=== PATIENT | female | born 1945 | race Caucasian/White ===

== ENCOUNTER → 2019-05-16 13:15 | Outpatient (CLI) | payer MEDICARE, SELFPAY ==
--- NOTE | ~2019-05-16 | US_ITS ---
EXAMINATION: US renal BI DATE: 05/16/2019 13:59 INDICATION: Abnormal renal function. TECHNIQUE: Multiple ultrasound grayscale images of the kidneys were obtained. COMPARISON: None. FINDINGS: The right kidney measures 8.0 x 4.6 x 4.3 cm. Exclusive of a 7.0 x 5.5 x 7.4 cm simple appearing anec hoic exophytic cyst arising from the lower pole. No hydronephrosis in the right kidney. The left kidn ey measures 10.8 x 4.8 x 4.5 cm. There is mild left hydronephrosis. The kidneys demonstrate normal ec hogenicity. No stones identified. Bilateral ureteral jets are visualized in the normal-appearing blad jose a.. IMPRESSION: 1. Mild left hydronephrosis but with bilateral ureteral jets in the bladder and no evident shadowing nephrolithiasis. 2. 7.4 cm simple appearing right renal cyst. Reviewed, dictated and finalized at location A. ERN FITTER IMPRESSION: 1. Mild left hydronephrosis but with bilateral ureteral jets in the bladder an d no evident shadowing nephrolithiasis. 2. 7.4 cm simple appearing right renal cyst.
== END ==
PROVIDERS: PCP Family Medicine; Visit Provider Internal Medicine Nephrology
DX: R94.4 Abnormal results of kidney function studies (principal); N28.1 Cyst of kidney, acquired
CPT/HCPCS: 76775

== ENCOUNTER 2019-09-15 09:42 | Outpatient (CLI) | payer MEDICARE, SELFPAY ==
--- NOTE | ~2019-09-15 | MR_ITS ---
EXAMINATION: MR knee LT wo con DATE: 09/15/2019 10:27 INDICATION: Generalized left knee pain TECHNIQUE: Magnetic resonance imaging (MRI) of the left knee was performed without intravenous contra st. Sequences included coronal PD-weighted FSE, coronal PD-weighted FS FSE, sagittal T2-weighted FSE , sagittal PD-weighted FS FSE and axial PD weighted fat saturated FSE. COMPARISON: None. FINDINGS: Medial compartment: Complex tear of the body and posterior horn of the medial meniscus. Partial-thickness cartilage loss along the anterior to central weightbearing medial femoral condyle and throughout the medial tibial p lateau. In places likely reaches full/near full-thickness with scattered subarticular edema. There ar e preserved cartilage thickness at the posterior weightbearing medial femoral condyle but with additi onal deep chondral fissuring. Moderate sized marginal osteophytes are present. Lateral compartment: Lateral meniscus is normal. Deep chondral fissuring at the posterior weightbearing lateral femoral co ndyle. Small marginal osteophytes are present. Patellofemoral compartment: Deep chondral ulceration with a few foci of subarticular edema at the medial patellar facet and apica l ridge. Additional deep chondral ulceration with underlying irregular contour to the articular onesimo x and mild subarticular edema at the lateral trochlea, trochlear groove and lateral side of the media l trochlea. Ligaments and tendons: Anterior and posterior cruciate ligaments are normal. The medial collateral ligament and fibular eliceo ateral ligament complex are normal. The extensor mechanism is normal. The visualized medial and later al hamstring tendons as well as the iliotibial band are normal. Fluid: Small knee joint effusion with small amount of fluid and mild synovitis at the suprapatellar pouch. T here is a 4 mm loose osteochondral body at the suprapatellar pouch. Multilobulated ganglion cyst avel g the posterior capsule overlying the posterior weightbearing medial femoral condyle. Additional mult ilobulated ganglion cyst tracking caudally along the medial and lateral margins of the popliteus musc le and tendon. Small amount of fluid and mild synovitis at the prepatellar bursa consistent with burs itis. Osseous/other: Bone alignment is normal. No fracture or pathologic marrow replacing process. IMPRESSION: 1. Complex medial meniscal tear. 2. Tricompartmental osteoarthritis, severe in the medial compartment and moderate severity in the pat ellofemoral compartment, both with extensive high-grade chondromalacia and mild in the lateral compar tment with region of moderate to high-grade chondromalacia in the posterior weightbearing lateral fem oral condyle. 3. Likely reactive small left knee joint effusion. 4. Prepatellar bursitis. Reviewed, dictated and finalized at location A. IMPRESSION: 1. Complex medial meniscal tear. 2. Tricompartmental osteoarthritis, severe in the medial compartment and modera te severity in the patellofemoral compartment, both with extensive high-grade c hondromalacia and mild in the lateral compartment with region of moderate to hi gh-grade chondromalacia in the posterior weightbearing lateral femoral condyle. 3. Likely reactive small left knee joint effusion. 4. Prepatellar bursitis.
== END 2019-09-15 09:43 | disposition home or self-care (01) ==
PROVIDERS: PCP Family Medicine; Visit Provider Orthopaedic Surgery
DX: M25.562 Pain in left knee (principal); S83.232A Complex tear of medial meniscus, current injury, left knee, initial encounter; M17.12 Unilateral primary osteoarthritis, left knee; M94.262 Chondromalacia, left knee; M25.462 Effusion, left knee; M71.562 Other bursitis, not elsewhere classified, left knee
CPT/HCPCS: 73721

== ENCOUNTER 2019-10-13 09:54 | Outpatient (CLI) | payer MEDICARE, SELFPAY ==
[2019-10-13 11:14] LABS: Basophils Percent Auto 0.5 % (0.2-1.2); Eosinophils Absolute Auto 0.2 K/mm3 (0-0.3); Eosinophils Percent Auto 3.8 % (0-4.4); Hematocrit 44.4 % (37.0-47.0); Hemoglobin 14.2 g/dL (12.0-15.0); Immature Granulocyte Absolute 0.01 K/mm3 (0.00-0.031); Immature Granulocyte Percent A 0.2 % (0-0.5); Lymphocytes Absolute Auto 1.63 K/mm3 (0.9-3.2); Lymphocytes Percent Auto 28.2 % (18.3-44.2); Mean Corpuscular Hemoglobin 30.4 pg (26-34); Mean Corpuscular Volume 95.1 fl (80-100); Mean Platelet Volume 9.9 fl (7.4-10.4); Monocytes Absolute Auto 0.7 K/mm3 (0.1-0.6); Neutrophils Absolute Auto 3.2 K/mm3 (1.3-6.7); Neutrophils Percent Auto 55.3 % (45.5-73.1); Platelet Count Result 173 k/mm3 (150-375); Red Blood Count 4.67 M/mm3 (4.2-5.4); Red Cell Distribution Width 13.2 % (11.5-14.5); White Blood Count 5.8 K/mm3 (4.5-10.0)
== END 2019-10-13 09:55 | disposition home or self-care (01) ==
LOC: ANHSURGERY 10:02
PROVIDERS: PCP Family Medicine; Visit Provider Orthopaedic Surgery
DX: Z01.818 Encounter for other preprocedural examination (principal); M17.12 Unilateral primary osteoarthritis, left knee
CPT/HCPCS: 36415; 85025; 86850; 86900; 86901; 87081

== ENCOUNTER 2019-10-20 02:34 | Outpatient (CLI) | payer MEDICARE, SELFPAY ==
[2019-10-20 18:57] LABS: SARS-CoV-2 RNA PCR Negative
== END 2019-10-20 02:35 | disposition home or self-care (01) ==
LOC: ANHCOVIDDT 02:35
PROVIDERS: PCP Family Medicine; Visit Provider Orthopaedic Surgery
DX: Z01.812 Encounter for preprocedural laboratory examination (principal); Z11.59 Encounter for screening for other viral diseases
CPT/HCPCS: 87635; C9803; U0003

== ENCOUNTER 2019-10-23 00:55 | Day surgery (SDC) | payer MEDICARE, SELFPAY ==
[2019-10-13 10:24] VITALS: BP 142/80; PULSE 64; RESP 20; TEMP 37.2; O2SAT 96
[2019-10-13 10:46] VITALS: BMI 29.9
[2019-10-23] VITALS (13 sets, daily range): BP systolic 109–140; BP diastolic 69–96; PULSE 62–95; RESP 11–19; TEMP 36.1–36.9; O2SAT 85–99
--- NOTE | ~2019-10-23 | XR_ITS ---
EXAMINATION: KNEE ONE/TWO VIEW-RIGHT DATE: 10/23/2019 13:30 INDICATION: Postoperative evaluation following left knee medial unicompartmental arthroplasty TECHNIQUE: Anteroposterior and lateral views of the left knee were obtained. COMPARISON: None. FINDINGS: Left knee medial unicompartmental arthroplasty appears well seated and in near anatomic alignment. N o fractures identified. Expected postoperative subcutaneous and intra-articular gas. IMPRESSION: 1. Left knee medial unicompartmental arthroplasty, negative for postoperative purposes. Reviewed, dictated and finalized at location A. IMPRESSION: 1. Left knee medial unicompartmental arthroplasty, negative for postoperative p urposes.
--- NOTE | 2019-10-23 08:39 | WPDANESEPP ---
Anes - Eval Pre Procedure Procedure: Operation Date: 10/23/19 10:30 Proposed Procedures p Left Unicompartmental Knee Replacement - Liban Blair MD Date/Time: 10/23/19 08:39 Pre Op Diagnosis: OA left knee Patient Data Age: 74 Gender: F Height: 5 ft 0.5 in Weight: 70.8 kg Last Vital Signs Temp 98.9 F 10/13/19 10:24 Pulse 64 10/13/19 10:24 Resp 20 10/13/19 10:24 BP 142/80 H 10/13/19 10:24 Pulse Ox 96 10/13/19 10:24 Allergies Allergy/AdvReac Type Severity Reaction Status Date / Time Sulfa (Sulfonamide Allergy Mild Itching Verified 10/13/19 10:04 Antibiotics) trimethoprim Allergy Unknown Itching Verified 10/13/19 10:04 Home Medications Medication Instructions Recorded Confirmed Type apixaban [Eliquis] 5 mg PO BID #60 tablet 01/27/19 10/13/19 Rx metoprolol succinate [Toprol XL] 100 mg PO QPM #30 tablet 01/27/19 10/13/19 Rx rosuvastatin 20 mg tablet 10 mg PO DAILY tablet 04/17/19 10/13/19 History paroxetine HCl 20 mg tablet 10 mg PO DAILY tablet 08/02/19 10/13/19 History enoxaparin 60 mg/0.6 mL 60 mg SUB-Q Q12H #7.8 ml 10/08/19 10/13/19 Rx subcutaneous syringe Patient hx anesthesia problems: none Family hx anesthesia problems: none PMFSH Past Medical History Medical History (Updated 10/23/19 @ 08:41 by Amish Starks CRNA) A-fib Anxiety BMI 28.0-28.9,adult Depression Distal radius fracture, right Diverticulosis GERD (gastroesophageal reflux disease) Hemorrhoid HTN (hypertension) Hyperlipidemia IBS (irritable bowel syndrome) Myocardial infarct Abnormal EKG a outpatient office Osteoarthritis of left knee Primary osteoarthritis of both knees Rectal polyp Snoring Surgical History Surgical History H/O colonoscopy with polypectomy 2014 with hyperplastic polyp H/O hemorrhoidectomy H/O shoulder surgery H/O vertebroplasty T9 vertebroplasty spring 2017 History of eye surgery Cataract- Dr. Herrera 08/28/19 History of shoulder surgery Right Shoulder reconstruction 1992 Hx of cataract surgery Hx of tonsillectomy Previous back surgery Family History Family History Father Acute myocardial infarction Mother Cancer Sibling Diabetes mellitus Sibling Hypertension Mother Family history of mental disorder Family history of pancreatic cancer Family history of colonic diverticulitis Other Cerebrovascular accident Social History Social History Social History: The patient lives in [place] with her of 64 years. She is her 's primary caregiver. 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 She is a lifelong nonsmoker. She does drink alcohol on occasion. Code status is full code. Primary care physician is Dr. Isabel Tomlinson. Smoking status: Never smoker Second hand tobacco smoke exposure: No Alcohol intake: current Substance use: never Substance use type: does not use Living arrangements: with family Gender identity (if verbalized by the patient): Female Spiritual care concerns: No Agree to blood products: Yes Exam Day of Procedure 10/23/19 08:39
--- NOTE | 2019-10-23 09:15 | P.PNAN_ITS ---
Anes - Eval Final PreProcedure Day of Procedure 10/23/19 09:15 Patient weight: obese Heart: regular rate and rhythm Lungs: clear to auscultation Airway: Mallampati scale class II Neurological: alert and oriented Last oral intake: >/= 8 hours ASA classification: III Emergent: no Anesthetic plan: proceed Anesthesia type and monitoring: general LMA and standard monitoring Informed Consent: The patient's anesthetic plan and its attendant risks and be nefits were discussed with the patient/family/POA. Questions were solicited and answers provided to the satisfaction of the patient/family/POA.
[2019-10-23] MEDS: LACTATED RINGERS 1,000 ML 30 ML IV CONT ×2 (09:20→13:17)
[2019-10-23] MEDS: ACETAMINOPHEN 500 MG TABLET 1000 MG PO (09:28)
[2019-10-23] MEDS: TRANEXAMIC ACID 1,000MG/ISO100 1,000 MG/100 ML BAG 200 MG IVPB (09:45)
--- NOTE | 2019-10-23 09:48 | WPDHPUPDATE1 ---
History and Physical Update Update Date/Time: 10/23/19 09:48 History and Physical has been reviewed, including an updated exam of the patient. There are NO changes in the patient's condition. Risks, benefits, and alternatives have been discussed and questions answered. Patient agrees to proceed with procedure.
[2019-10-23] MEDS: KETOROLAC 15 MG/ML VIAL (*BKC) IV PUSH (10:23)
--- NOTE | 2019-10-23 10:37 | WPDANESPNB ---
Anes - Peripheral Nerve Block Date/Time: 10/23/19 10:37 I have discussed with the patient/family/POA the placement of a peripheral nerve block for post-operative pain management, including associated risks, benefits, complications, and side effects. Alternative methods of post-operative analgesia were detailed. Questions were solicited and answers provided to the satisfaction of the patient/family/POA. Time-Out: A pre-procedural Time-Out was completed immediately before starting the procedure and confirmed: Patient Identification, Site, Procedure, Patient Position and the Availability of Requisite Equipment. Clinical Indications: Acute post-operative pain management requested by the operative surgeon. Nerve Block Insertion Note Anes-nerve block: adductor canal left Patient position: supine Skin prep: chlorhexidine Needle: 22 gauge, stimulating, insulated echogenic needle. Needle length: 80 mm Technique: ultrasound Technique comment: fent 100mcg Injectate: bupivacaine 0.5% with epi 5 mcg/ml (30ml) Observations: tolerated well Complications: none Procedure start time:: 1027 Procedure end time:: 1034
[2019-10-23] MEDS: ceFAZolin 2 GM/D5W 50 ML 2 GM/50 ML BAG IVPB ×2 (10:46→18:19)
[2019-10-23] MEDS: SODIUM CHLORIDE 0.9% IV 50 ML, TRANEXAMIC ACID 1,000 MG TOPICAL (11:29)
[2019-10-23] MEDS: GENTAMICIN BONE CEMENT REFOBACIN 1 EACH TOPICAL (11:35)
--- NOTE | 2019-10-23 13:21 | PM.PROC ---
Procedure Note - Detailed Date of procedure: 10/23/19 Pre-op diagnosis: OA left knee Post-op diagnosis: same Procedure performed: left knee unicompartmental replacement Description of procedure: The patient was identified and the proper site identified. In the preop holding area the anesthesia team performed a right lower extremity block. she was then taken to the operating room and transferred to the OR table placing him supine taking care to pad his torso and extremities. After general anesthetic induction and intubation. a nonsterile tourniquet was placed high on the right thigh. The right lower extremity was positioned, prepped, and draped in the usual sterile fashion. The extremity was exsanguinated and the tourniquet was inflated to 300 mmHg remaining up for approximately 70 minutes. An anterior midline incision was made and sharp dissection carried down through the subcutaneous tissue to the extensor mechanism. A modified medial parapatellar arthrotomy was performed. The articular and meniscal cartilage of the lateral compartment was inspected and noted to be in excellent shape. Anterior and posterior cruciate ligaments were in continuity. There were extensive degenerative changes medial compartment and milder patellofemoral changes. The marginal osteophytes were removed from the notch and the medial aspect of the medial femoral condyle, and the remaining meniscal tissue was removed. The femur was sized to a small. With the appropriate spoon and tibial guide, a tibial resection was made. This was sized to AA. Using the mill, the flexion and extension gaps were balanced. A trial reduction was undertaken. The range of motion of the knee was noted to be from full extension to 120? of flexion with excellent stability through range of motion. The polyethylene insert tracked nicely. The trial components were removed. The real small femur and size AA tray for the left knee were cemented into place. The knee was held in about 30? of flexion while the cement cured. The tourniquet was released and excess cement was removed from the joint. Hemostasis was carried out. The knee was flushed with a copious amount of irrigation. After trialing, the appropriate real size 4 insert for the femoral component was inserted and the stability again assessed. The knee was noted to be stable as it was taken through range of motion. The periarticular tissues were injected with 60 mL of the arthroplasty solution and 1 g of tranexamic acid was left in the wound. The extensor mechanism was repaired with #2 Vicryl, 0 looped PDS suture, the subcu with 2-0 strata fix, and the skin with glue. A sterile dressing was applied. The patient tolerated the procedure well. She was awakened, extubated, and taken to recovery room in stable condition. Surgeon: Liban Blair MD Estimated blood loss (mL): 100 Tourniquet time (min): 70 Drains: No Packing: No Pathology: none sent Complications: No immediate complications Condition: stable Disposition: PACU
--- NOTE | 2019-10-23 13:35 | SUR.PHASEI ---
0927 xrays left knee done.
--- NOTE | 2019-10-23 14:42 | ADMGEN ---
This patient, Cherry Coleman, was admitted to 2 Medical Room 244-. Patient/family oriented to hospital policies and general routines including ID bracelet, bed and alarms, visiting hours, pain management, procedures, bathroom and other care routines, personal items, smoking policy, room service/diet, and visiting hours. Valuables list has been completed. Information on how to activate the Rapid Response Team has been discussed. Patient/Family are encouraged to report perceived risks to care and to ask questions if they do not understand what they are told or what they should do.
[2019-10-23] MEDS: SODIUM CHLORIDE 0.9% IV 1,000 ML 125 ML IV CONT (15:02)
[2019-10-23] MEDS: METOPROLOL SUCCINATE EXT REL 100 MG TABCR PO (17:01)
--- NOTE | 2019-10-23 19:00 | WPDCN ---
Assessment and Plan Assessment and plan (1) Osteoarthritis of left knee: Qualifiers: Osteoarthritis type: primary Qualified Code(s): M17.12 - Unilateral primary osteoarthritis, left knee Code(s): M17.12 - Unilateral primary osteoarthritis, left knee Status: Acute Assessment and Plan: Postoperative day 0, left unicompartmental replacement. Wound care and pain control as per Dr. Blair. DVT prophylaxis also deferred to primary service. Check baseline labs in a.m. (2) Paroxysmal atrial fibrillation: Code(s): I48.0 - Paroxysmal atrial fibrillation Status: Acute Assessment and Plan: She currently sounds to be in a sinus rhythm. Continue metoprolol for rate control. Resume Eliquis as per Dr. Blair. (3) buttermaker current use of anticoagulant: Code(s): Z79.01 - buttermaker (current) use of anticoagulants Status: Acute Assessment and Plan: She is on Eliquis for paroxysmal atrial fibrillation, which will be resumed per primary service. (4) Hypertension: Code(s): I10 - Essential (primary) hypertension Status: Acute Assessment and Plan: Blood pressures were reviewed and they are stable. Continue metoprolol and monitor closely. Additional Plan Thank you for allowing us to participate in this patient's care. Please do not hesitate to contact us with any questions. Supervising physician for this history and physical is Dr. Baltazar Alvarez. HPI Data of Consult Date/Time: 10/23/19 19:00 Requesting Physician: Liban Blair MD Primary Care Provider: Isabel Tomlinson MD Consult Narrative Narrative: Cherry Coleman is a 74-year-old female with osteoarthritis, hypertension, paroxysmal atrial fibrillation on long-term anticoagulation, and GERD whom the hospitalist service has been consulted for management of chronic medical conditions, postoperatively. She has had pain in both of her knees, left > right, not amenable to conservative outpatient treatment and thus she elected for replacement today. Her surgery was performed under general anesthesia with no immediate complications documented an estimated blood loss of 100 mL. at the time my evaluation she has minimal pain, and tells me that she has been up to the bathroom without issue. She denies paresthesias, skin color, and temperature changes distal to the surgical site. She also denies postoperative fever, chills, chest pain, shortness of breath, nausea, and vomiting. Review of Systems Review of Systems: Narrative: Twelve systems were reviewed with pertinent positives and negatives as per HPI. She believes her medical conditions are well controlled on home medications. Her last dose of Eliquis was on June 14 and I believe she is to resume that tomorrow at the discretion of Dr. Blair. She was never symptomatic with AFib, thus does not know if she is in that rhythm very often. No recent cold or flu symptoms. She denies cough and shortness of breath. No history of venous thromboembolism. Except as documented, all other systems were reviewed and are negative. [facility] Past Medical History Medical History (Updated 10/23/19 @ 22:19 by Kaitlyn Noble PA-C) Anxiety Depression Distal radius fracture, right Diverticulosis Gastroesophageal reflux Hyperlipidemia Hypertension Irritable bowel syndrome buttermaker current use of anticoagulant Myocardial infarct Abnormal EKG a outpatient office. Negative chemical stress test in 2019. Osteoarthritis of left knee Paroxysmal atrial fibrillation Primary osteoarthritis of both knees Rectal polyp Surgical History Surgical History (Updated 10/23/19
[2019-10-24 00:16] VITALS: BP 103/60; PULSE 62; RESP 12; TEMP 36.6; O2SAT 95
[2019-10-24] MEDS: ceFAZolin 2 GM/D5W 50 ML 2 GM/50 ML BAG IVPB ×2 (03:37→11:04)
[2019-10-24 04:16] VITALS: BP 108/72; PULSE 50; RESP 16; TEMP 36.6; O2SAT 96
[2019-10-24 05:16] LABS: Basophils Percent Auto 0.2 % (0.2-1.2); Hematocrit 37.4 % (37.0-47.0); Immature Granulocyte Absolute 0.04 K/mm3 (0.00-0.031); Immature Granulocyte Percent A 0.5 % (0-0.5); Lymphocytes Absolute Auto 0.67 K/mm3 (0.9-3.2); Lymphocytes Percent Auto 8.2 % (18.3-44.2); Mean Corpuscular HGB Conc 32.1 g/dl (32-36); Mean Corpuscular Hemoglobin 30.8 pg (26-34); Mean Corpuscular Volume 96.1 fl (80-100); Monocytes Absolute Auto 0.5 K/mm3 (0.1-0.6); Monocytes Percent Auto 6.5 % (2.6-8.5); Neutrophils Absolute Auto 6.9 K/mm3 (1.3-6.7); Neutrophils Percent Auto 84.6 % (45.5-73.1); Platelet Count Result 148 k/mm3 (150-375); Red Blood Count 3.89 M/mm3 (4.2-5.4); White Blood Count 8.2 K/mm3 (4.5-10.0)
[2019-10-24 05:35] LABS: Anion Gap 6 mmol/L (8-16); Blood Urea Nitrogen 16 mg/dL (7-17); Calcium 8.2 mg/dL (8.4-10.2); Carbon Dioxide 24 mmol/L (22-30); Chloride 104 mmol/L (98-107); Estimated CRCL calculation 38 ml/min; Estimated Glomerular Filt Rate 54; Glucose 133 mg/dL (65-105); Potassium 4.9 mmol/L (3.4-5.0); Sodium 134 mmol/L (137-145)
--- NOTE | 2019-10-24 07:47 | P.PNAN_ITS ---
Anes - Prog Note Post-Op Date/Time: 10/24/19 07:47 Cardiovascular status: normal Respiratory status: normal Airway patency: baseline Mental status: baseline Post-Op hydration status: normal Vital Signs: Last Vital Signs Temp 36.6 C 10/24/19 04:16 Pulse 50 L 10/24/19 04:16 Resp 16 10/24/19 04:16 BP 108/72 10/24/19 04:16 Pulse Ox 96 10/24/19 04:16 I/O: Intake & Output 10/23/19 10/23/19 10/24/19 15:59 23:59 07:59 Intake Total 450 682 400 Output Total 150 450 Balance 450 532 -50 Laboratory Tests 10/24/19 04:50 10/24/19 04:50 10/24/19 10/24/19 04:50 04:50 WBC 8.2 RBC 3.89 L Hgb 12.0 Hct 37.4 MCV 96.1 MCH 30.8 MCHC 32.1 RDW 13.0 Plt Count 148 L MPV 10.0 Immature Gran % (Auto) 0.5 Neut % (Auto) 84.6 H Lymph % (Auto) 8.2 L [place] % (Auto) 6.5 Eos % (Auto) 0.0 Baso % (Auto) 0.2 Lymph # (Auto) 0.67 L [place] # (Auto) 0.5 Eos # (Auto) 0.0 Baso # (Auto) 0.0 Abs Immat Gran (auto) 0.04 H Absolute Neuts (auto) 6.9 H Absolute Nucleated RBC 0.0 Nucleated RBC % 0.0 Sodium 134 L Potassium 4.9 Chloride 104 Carbon Dioxide 24 Anion Gap 6 L BUN 16 Creatinine 1.00 Estim Creat Clear Calc 38 Estimated GFR 54 L Glucose 133 H Calcium 8.2 L Post-procedural complaints: none Patient Feedback: Patient satisfied with anesthetic care.
--- NOTE | 2019-10-24 07:48 | PM.DS ---
DS: Admitting Diagnosis Admitting Diagnosis Admitting Diagnosis: Unilateral primary osteoarthritis, left knee DS: Discharge Diagnosis Discharge Diagnosis (1) S/P left unicompartmental knee replacement: Code(s): Z96.652 - Presence of left artificial knee joint Status: Chronic Assessment and Plan: 74-year-old female postop day one left knee unicompartmental replacement and doing well. Surgery discussed with her and questions answered. She will be discharged home today. DS: Summary Time Spent with Patient Time attestation: Total time spent providing and/or coordinating discharge services: Exam Const: General: cooperative, alert and awake Nutritional Appearance: other Orientation/consciousness: oriented to person, oriented to place, oriented to time and patient oriented x3 HENMT: Head: normal to inspection Ears: hearing grossly normal bilaterally Teeth and gingiva: fair dentition Eyes: General: appearance normal, both eyes and all related structures Neck: Neck: normal visual inspection and full ROM Chest: Chest palpation & inspection: normal inspection of the chest and No Pacemaker present Resp: Effort & Inspection: normal respiratory effort and able to speak in complete sentences Cardio: Rate: regular rate Peripheral pulses: Peripheral pulses 2+ throughout GI: Inspection: normal to inspection GI Palp: No Tenderness to palpation present (GI) Skin: General skin exam: normal color, no petechiae and no purpura Hair: other Neuro: General: oriented to person, oriented to place, oriented to time and patient oriented x3 Cognition (Neuro): normal cognition Speech: normal speech Sensory Exam: normal sensation Extrem: General: normal to inspection and other ( Left knee wound well opposed and dry. No erythema. Minimal swelling) Psych: Appearance: grossly normal Mental Status: mental status grossly normal Insight: Good insight present (Psych) Judgement: Good judgement present (Psych) DS: Data Data Completed and Pending Labs on day of discharge: Labs from last 24 hours 10/24/19 10/24/19 04:50 04:50 WBC 8.2 RBC 3.89 L Hgb 12.0 Hct 37.4 MCV 96.1 MCH 30.8 MCHC 32.1 RDW 13.0 Plt Count 148 L MPV 10.0 Immature Gran % (Auto) 0.5 Neut % (Auto) 84.6 H Lymph % (Auto) 8.2 L [place] % (Auto) 6.5 Eos % (Auto) 0.0 Baso % (Auto) 0.2 Lymph # (Auto) 0.67 L [place] # (Auto) 0.5 Eos # (Auto) 0.0 Baso # (Auto) 0.0 Abs Immat Gran (auto) 0.04 H Absolute Neuts (auto) 6.9 H Absolute Nucleated RBC 0.0 Nucleated RBC % 0.0 Sodium 134 L Potassium 4.9 Chloride 104 Carbon Dioxide 24 Anion Gap 6 L BUN 16 Creatinine 1.00 Estim Creat Clear Calc 38 Estimated GFR 54 L Glucose 133 H Calcium 8.2 L Discharge Plan Discharge Patient Disposition: Home, Self-Care Discharge Instructions: 3 times daily for 20 minutes each time, reclining in bed with ice packs over the incision and a pillow underneath the affected calf. Your wound is glued so it is okay to get into the shower and get the wound wet. Be sure to read through all the information that came from a my office and the hospital. Most of the answer was you will need can be found that material. Call the office with any questions that you cannot find answers to, or concerns you may have. Please call [facility] at as soon as possible to verify follow-up appointment to be seen in to weeks. Also, call the office with any orthopedic/surgical related questions prior to follow-up. Be sure to get up and move around several times daily but do not overdo it. remember that you will be using a walker for six weeks putting only 50% weight on your left leg. Patient Instructions: Apixaban (By mouth), Precautions after Total Joint Replacement Surgery (ED), Knee Replacement (DC) Stand Alone Forms: General Discharge Instructions Discharge Medications: New hydrocodon
[2019-10-24] MEDS: polyethylene glycoL 3350 17 GM POWD.PACK PO (08:00)
[2019-10-24] MEDS: DOCUSATE SODIUM 100 MG CAPSULE PO (08:00)
[2019-10-24] MEDS: ROSUVASTATIN 10 MG TABLET PO (08:00)
[2019-10-24 10:00] VITALS: BP 107/65; PULSE 64; RESP 14; TEMP 36.7; O2SAT 98
[2019-10-24] MEDS: APIXABAN 5 MG TABLET PO (11:04)
== END 2019-10-24 12:40 | disposition home or self-care (01) ==
LOC: ANHSURGERY 08:33 → ANH2MED 14:32
PROVIDERS: PCP Family Medicine; Visit Provider Orthopaedic Surgery
PROC: (CPT 27446; principal; 2019-10-23 10:30)
DX: M17.12 Unilateral primary osteoarthritis, left knee (principal); G89.18 Other acute postprocedural pain; I48.0 Paroxysmal atrial fibrillation; I10 Essential (primary) hypertension; E78.5 Hyperlipidemia, unspecified; I25.2 Old myocardial infarction; K58.9 Irritable bowel syndrome, unspecified; K21.9 Gastro-esophageal reflux disease without esophagitis; F41.8 Other specified anxiety disorders; Z79.01 Long term (current) use of anticoagulants
CPT/HCPCS: 27446; 64447; 36415; 73560; 80048; 85025; 97110; 97116; 97161; 97165; 97530; A9270; C1713; C1776; J0171; J0690; J1100; J1885; J2270; J2405; J2704; J2795; J3010; J7030; J7120

== ENCOUNTER 2019-11-04 17:15 | Observation (INO) | payer MEDICARE, SELFPAY ==
[2019-11-04 17:19] VITALS: BP 106/85; PULSE 106; RESP 18; TEMP 36.4; O2SAT 100
[2019-11-04 17:39] LABS: Basophils Absolute Auto 0.1 K/mm3 (0.0-0.1); Basophils Percent Auto 0.6 % (0.2-1.2); Eosinophils Absolute Auto 0.2 K/mm3 (0-0.3); Eosinophils Percent Auto 2.6 % (0-4.4); Hematocrit 40.9 % (37.0-47.0); Hemoglobin 13.5 g/dL (12.0-15.0); Immature Granulocyte Absolute 0.03 K/mm3 (0.00-0.031); Immature Granulocyte Percent A 0.3 % (0-0.5); Lymphocytes Absolute Auto 1.64 K/mm3 (0.9-3.2); Lymphocytes Percent Auto 18.9 % (18.3-44.2); Mean Corpuscular Volume 93.8 fl (80-100); Mean Platelet Volume 9.5 fl (7.4-10.4); Monocytes Absolute Auto 0.8 K/mm3 (0.1-0.6); Monocytes Percent Auto 9.4 % (2.6-8.5); Neutrophils Absolute Auto 5.9 K/mm3 (1.3-6.7); Neutrophils Percent Auto 68.2 % (45.5-73.1); Platelet Count Result 321 k/mm3 (150-375); Red Blood Count 4.36 M/mm3 (4.2-5.4); Red Cell Distribution Width 13.2 % (11.5-14.5); White Blood Count 8.7 K/mm3 (4.5-10.0)
[2019-11-04 17:52] LABS: Anion Gap 9 mmol/L (8-16); Blood Urea Nitrogen 21 mg/dL (7-17); CRP 2.5 mg/dL (<1.0); Calcium 9.1 mg/dL (8.4-10.2); Carbon Dioxide 24 mmol/L (22-30); Chloride 105 mmol/L (98-107); Estimated CRCL calculation 34 ml/min; Estimated Glomerular Filt Rate 48; Glucose 112 mg/dL (65-105); Potassium 4.5 mmol/L (3.4-5.0); Sodium 138 mmol/L (137-145)
--- NOTE | 2019-11-04 18:22 | ED.GENADULT ---
HPI - General Adult General Chief complaint: Extremity Injury, Lower Stated complaint: left knee possibly infected Time Seen by Provider: 11/04/19 17:24 Source: patient Mode of arrival: ambulatory Limitations: no limitations History of Present Illness HPI narrative: Patient is a 74-year-old female who presents to emergency department for evaluation of possible left knee infection patient had partial knee on [address] Blair developed some redness and tenderness along the incision lines and anteriorly patient was seen by orthopedic surgery on Wednesday started on antibiotics was advised to come to the emergency department due to continued redness tenderness and swelling Related Data Home Medications Medication Instructions Recorded Confirmed rosuvastatin 20 mg tablet 10 mg PO DAILY tablet 04/17/19 10/31/19 Allergies Allergy/AdvReac Type Severity Reaction Status Date / Time Sulfa (Sulfonamide Allergy Mild Itching Verified 11/04/19 17:22 Antibiotics) trimethoprim Allergy Unknown Itching Verified 11/04/19 17:22 Review of Systems Review of Systems: All systems reviewed & are unremarkable except as noted in HPI and below PMFSH Past Medical History Medical History Anxiety Depression Distal radius fracture, right Diverticulosis Gastroesophageal reflux Hyperlipidemia Hypertension 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 Negative chemical stress test in 2019. Osteoarthritis of left knee Paroxysmal atrial fibrillation Primary osteoarthritis of both knees Rectal polyp Surgical History Surgical History History of cataract extraction (08/28/19) Per Dr. Herrera. History of colonoscopy with polypectomy (~2014) Hyperplastic polyp. History of hemorrhoidectomy History of shoulder surgery (~1992) Right shoulder reconstruction. History of tonsillectomy History of vertebroplasty (~2017) T9 vertebroplasty. S/P left unicompartmental knee replacement surgery October 2019 Family History Family History Father Acute myocardial infarction Mother Cancer Sibling Diabetes mellitus Sibling Hypertension Mother Family history of mental disorder Family history of pancreatic cancer Family history of colonic diverticulitis Other Cerebrovascular accident Social History Social History Social History: The patient lives in [place] with her of 64 years. She is her 's primary caregiver, he suffers from Parkinson's and dementia. I believe they have 4 children. 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 She is a lifelong nonsmoker. She does drink alcohol on occasion. Code status is full code. Primary care physician is Dr. Isabel Tomlinson. Gender identity (if verbalized by the patient): Female Spiritual care concerns: No Agree to blood products: Yes Exam Narrative: Exam Narrative: GENERAL: Well-appearing, well-nourished, and in no acute distress. HEAD: Normocephalic, atraumatic. EYES: PERRLA and EOMI. ENT: Nares clear, no rhinorrhea or epistaxis. Mucous membranes moist. CHEST: Clear to auscultation. No respiratory distress. No wheezes rales or rhonchi HEART: Regular rate and rhythm. No murmur heard. EXTREMITIES: Patient with some erythema and warmth to touch along the incision line of the left total knee with slight swelling of the joint noted some edema down into the leg SKIN: Warm, dry, no rash. NEURO: No focal deficits. Alert and oriented x3. Neurovascularly intact. Capillary refill less than 2 seconds PSYCH: Normal mood and affect. Course Course Emergency Course: Patient in the room evaluated by orthopedic surgery will be placed in hospital Vital Signs Vital signs:
[2019-11-04 18:26] LABS: Erythrocyte Sedimentation Rate 22 mm/hr (0-20)
[2019-11-04] MEDS: SODIUM CHLORIDE 0.9% IV 1,000 ML 999 ML IV CONT (18:42)
--- NOTE | 2019-11-04 19:04 | PM.IMHP ---
H&P: HPI History of Present Illness Date/Time: 11/04/19 19:04 Chief complaint: left knee possibly infected Narrative: Cherry Coleman is a 74 year old femaleWho is 12 days out from left knee unicompartmental replacement. She has had persistent erythema in the anterior portion of her knee and so was instructed to come to the ER for me to evaluate her. The majority of her pain is in the anterior portion of the knee. She has not felt febrile. Denies any other constitutional symptoms. Review of Systems Constitutional: Constitutional: Reports no additional constitutional complaints and Denies weakness Eyes: Eyes: Reports no additional eye complaints ENT: Reports system reviewed and no additional complaints, except as documented Cardiovascular: Cardiovascular: Denies chest pain and Denies lightheadedness Respiratory: Respiratory: Reports no additional respiratory complaints Gastrointestinal: Gastrointestinal: Reports no additional gastrointestinal complaints Musculoskeletal: Musculoskeletal: Reports as per HPI and Denies numbness Integumentary/Breasts: Skin/Breast: Reports system reviewed and no additional complaints, except as docu Neurologic: Reports system reviewed and no additional complaints, except as documented, Denies numbness and Denies weakness Hematologic/Lymphatic: Hematologic/Lymphatic: Reports easy bleeding and Reports easy bruising ( On Eliquis) [facility] Past Medical History Medical History Anxiety Depression Distal radius fracture, right Diverticulosis Gastroesophageal reflux Hyperlipidemia Hypertension Irritable bowel syndrome shelter current use of anticoagulant Myocardial infarct Abnormal EKG a outpatient office. Negative chemical stress test in 2019. Osteoarthritis of left knee Paroxysmal atrial fibrillation Primary osteoarthritis of both knees Rectal polyp Surgical History Surgical History History of cataract extraction (08/28/19) Per Dr. Herrera. History of colonoscopy with polypectomy (~2014) Hyperplastic polyp. History of hemorrhoidectomy History of shoulder surgery (~1992) Right shoulder reconstruction. History of tonsillectomy History of vertebroplasty (~2017) T9 vertebroplasty. S/P left unicompartmental knee replacement surgery October 2019 Family History Family History Father Acute myocardial infarction Mother Cancer Sibling Diabetes mellitus Sibling Hypertension Mother Family history of mental disorder Family history of pancreatic cancer Family history of colonic diverticulitis Other Cerebrovascular accident Social History Social History Social History: The patient lives in [place] with her of 64 years. She is her 's primary caregiver, he suffers from Parkinson's and dementia. I believe they have 4 children. 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 She is a lifelong nonsmoker. She does drink alcohol on occasion. Code status is full code. Primary care physician is Dr. Isabel Tomlinson. Gender identity (if verbalized by the patient): Female Spiritual care concerns: No Agree to blood products: Yes Meds Home Medications and Allergies Home Medications Medication Instructions Recorded Confirmed Type Eliquis 5 mg PO BID #60 tablet 01/27/19 10/31/19 Rx metoprolol succinate [Toprol XL] 100 mg PO QPM #30 tablet 01/27/19 10/31/19 Rx rosuvastatin 20 mg tablet 10 mg PO DAILY tablet 04/17/19 10/31/19 History paroxetine HCl 10 mg tablet 10 mg PO DAILY #90 tablet 10/23/19 10/31/19 Rx hydrocodone-acetaminophen 1 tablet PO Q4HR PRN #40 tablet 10/24/19 10/31/19 Rx Allergies Allergy/AdvReac Type Severity Reaction Status Date / Time Sulfa (Sulfonamide Allergy Mild Itching Verified 11/04/19 17:22 Ant
[2019-11-04 20:52] VITALS: BP 127/82; PULSE 78; RESP 18; TEMP 36.6; O2SAT 99
[2019-11-04 21:08] VITALS: BMI 28.3
[2019-11-04 21:10] VITALS: BP 122/80; PULSE 81; RESP 18; TEMP 36.6; O2SAT 97
[2019-11-04] MEDS: ceFAZolin 2 GM/D5W 50 ML 2 GM/50 ML BAG IVPB (22:25)
[2019-11-04] MEDS: SODIUM CHLORIDE 0.9% IV 500 ML 20 ML (22:25)
[2019-11-05] MEDS: ceFAZolin 2 GM/D5W 50 ML 2 GM/50 ML BAG IVPB ×3 (05:59→20:57)
[2019-11-05 06:00] VITALS: BP 118/82; PULSE 79; RESP 18; TEMP 36.2; O2SAT 97
[2019-11-05 06:34] LABS: Basophils Percent Auto 0.4 % (0.2-1.2); Eosinophils Absolute Auto 0.2 K/mm3 (0-0.3); Eosinophils Percent Auto 3.9 % (0-4.4); Hematocrit 34.8 % (37.0-47.0); Hemoglobin 11.3 g/dL (12.0-15.0); Immature Granulocyte Absolute 0.02 K/mm3 (0.00-0.031); Immature Granulocyte Percent A 0.4 % (0-0.5); Lymphocytes Absolute Auto 1.47 K/mm3 (0.9-3.2); Lymphocytes Percent Auto 25.8 % (18.3-44.2); Mean Corpuscular HGB Conc 32.5 g/dl (32-36); Mean Corpuscular Hemoglobin 30.5 pg (26-34); Mean Corpuscular Volume 93.8 fl (80-100); Mean Platelet Volume 9.8 fl (7.4-10.4); Monocytes Absolute Auto 0.6 K/mm3 (0.1-0.6); Monocytes Percent Auto 10.7 % (2.6-8.5); Neutrophils Absolute Auto 3.4 K/mm3 (1.3-6.7); Neutrophils Percent Auto 58.8 % (45.5-73.1); Platelet Count Result 259 k/mm3 (150-375); Red Blood Count 3.71 M/mm3 (4.2-5.4); Red Cell Distribution Width 13.1 % (11.5-14.5); White Blood Count 5.7 K/mm3 (4.5-10.0)
[2019-11-05] MEDS: ENOXAPARIN 30 MG/0.3 ML SYRINGE SUB-Q (09:01)
--- NOTE | 2019-11-05 09:20 | PM.PNORT ---
Progress Note: A&P Assessment and Plan (1) Wound cellulitis after surgery: Code(s): T81.49XA - Infection following a procedure, other surgical site, initial encounter Status: Acute Assessment and Plan: 74-year-old female with anterior cellulitis in her left knee following unicompartmental replacement. I will see how this does today and recheck her tomorrow morning. She will be NPO after midnight. I did talk about the possibility of washing out the anterior portion of her wound and then re- closing with a removable plastic suture rather than leaving the absorbable one in the dermal layer. Subjective Subjective Date/Time Seen: 11/05/19 09:20 Principal diagnosis: Left knee cellulitis Interval history: 74-year-old female hospital day one IV antibiotics for left knee cellulitis. She reports the pain in the anterior portion of her knee to be unchanged. Review of Systems Constitutional: Constitutional: Denies chills and Denies fever(s) Eyes: Eyes: Reports no additional eye complaints ENT: Reports system reviewed and no additional complaints, except as documented Cardiovascular: Cardiovascular: Denies chest pain and Denies dyspnea on exertion Respiratory: Respiratory: Reports no additional respiratory complaints and Denies dyspnea on exertion Gastrointestinal: Gastrointestinal: Denies abdominal pain and Denies bloating Exam Const: General: cooperative, no acute distress and alert Nutritional Appearance: other Orientation/consciousness: patient oriented x3 Limitations: no limitations HENMT: Head: normal to inspection Ears: hearing grossly normal bilaterally Face and sinus: face symmetric Mouth: Yes moist mucous membranes Teeth and gingiva: fair dentition Eyes: Alignment and Position: alignment normal and position normal Sclera: sclerae normal Neck: Neck: normal visual inspection and nontender Chest: Chest palpation & inspection: normal inspection of the chest Resp: Effort & Inspection: normal respiratory effort and able to speak in complete sentences GI: Inspection: other ( Nondistended, nontender) Skin: General skin exam: normal color Rashes: no rashes Neuro: General: patient oriented x3 Cognition (Neuro): normal cognition Speech: normal speech Gait exam (Neuro): Other gait observations present Sensory Exam: normal sensation Extrem: General: normal to inspection and other Other: Exam of the left knee shows just a very mild effusion intra-articularly. She does have a tense fluid collection anteriorly underneath the skin flaps. The erythematous changes her somewhat bronze-like in appearance with some erythema underneath the glue along the incision. No pain with passive range of motion of the left knee. Neurovascular status grossly intact. Psych: Appearance: grossly normal Mental Status: mental status grossly normal Objective Data Vital Signs Vital Signs: Vital Signs - 24 hr 11/04/19 17:19 11/04/19 20:52 11/04/19 21:10 Temperature 97.6 F 97.9 F 97.8 F Pulse Rate 106 H 78 81 Respiratory Rate 18 18 18 Blood Pressure 106/85 127/82 122/80 Pulse Oximetry 100 99 97 11/05/19 06:00 Temperature 97.2 F L Pulse Rate 79 Respiratory Rate 18 Blood Pressure 118/82 Pulse Oximetry 97 Intake/Output Intake/Output: Intake & Output 11/02/19 11/03/19 11/04/19 11/05/19 23:59 23:59 23:59 23:59 Intake Total 1050 / 1050 100 / 100 Balance 1050 / 1050 100 / 100 Meds/Results Medications: Active Medications Generic Name Dose Route Start Last Admin Trade Name Freq PRN Reason Stop Dose Admin Hydrocodone Bitart/Acetaminophen 1 tab 11/04/19 21:51 11/05/19 09:00 [place] 5-325 Mg PO 1 tab Q4H PRN Administration Moderate Pain (4-6) Al Hydrox/Mg Hydrox/Simethicone 30 ml 11/04/19 21:51 Mylanta PO QID PRN Dyspepsia Cefazolin Sodium 2 gm in 50 mls @ 100 mls/hr 11/04/19 22:00 11/05/19 05:59 Ancef 2 Gm/D5w 50 Ml IVPB 100 mls/hr Q8HR GIORGI Admi
[2019-11-05 14:00] VITALS: BP 101/71; PULSE 109; RESP 18; TEMP 36.6; O2SAT 97
--- NOTE | 2019-11-05 15:53 | PM.IMCN ---
Assessment and Plan Assessment and plan (1) Wound cellulitis after surgery: Code(s): T81.49XA - Infection following a procedure, other surgical site, initial encounter Status: Acute Assessment and Plan: Cherry Coleman is a 74 year old female the past medical history of hypertension and about 8 months ago patient was diagnosed with atrial fibrillation states her rate is controlled with metoprolol succinate and anticoagulated with Eliquis, patient also has history of severe osteoarthritis left knee on 10/22 had a unicompartment repair of the knee and was uncomplicated, patient presented with redness swelling to the surgical wound and patient is being admitted by the orthopedic surgeon and we have been consulted for medical management of hypertension atrial fibrillation, denies any chest pain shortness of breath palpitation fever or chills, for her cellulitis patient is started on cephazolin and vancomycin, orthopedic surgeon recommending patient will benefit to re-explore the wound and washout, will continue to follow with surgeon as patient is clinically stable (2) Hypertension: Code(s): I10 - Essential (primary) hypertension Status: Acute Assessment and Plan: will continue home regimen (3) Paroxysmal atrial fibrillation: Code(s): I48.0 - Paroxysmal atrial fibrillation Status: Acute Assessment and Plan: patient rate is controlled anticoagulated with Eliquis HPI Data of Consult Consult date: 11/05/19 Requesting Physician: Liban Blair MD Primary Care Provider: Isabel Tomlinson MD Consult Narrative Narrative: Cherry Coleman is a 74 year old female the past medical history of hypertension and about 8 months ago patient was diagnosed with atrial fibrillation states her rate is controlled with metoprolol succinate and anticoagulated with Eliquis, patient also has history of severe osteoarthritis left knee on 10/22 had a unicompartment repair of the knee and was uncomplicated, patient presented with redness swelling to the surgical wound and patient is being admitted by the orthopedic surgeon and we have been consulted for medical management of hypertension atrial fibrillation, denies any chest pain shortness of breath palpitation fever or chills, for her cellulitis patient is started on cephazolin and vancomycin, orthopedic surgeon recommending patient will benefit to re-explore the wound and washout, will continue to follow with surgeon as patient is clinically stable Review of Systems Review of Systems: All systems reviewed & are unremarkable except as noted in HPI and below PMFSH Past Medical History Medical History Anxiety Depression Distal radius fracture, right Diverticulosis Gastroesophageal reflux Hyperlipidemia Hypertension 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 Negative chemical stress test in 2019. Osteoarthritis of left knee Paroxysmal atrial fibrillation Primary osteoarthritis of both knees Rectal polyp Surgical History Surgical History History of cataract extraction (08/28/19) Per Dr. Herrera. History of colonoscopy with polypectomy (~2014) Hyperplastic polyp. History of hemorrhoidectomy History of shoulder surgery (~1992) Right shoulder reconstruction. History of tonsillectomy History of vertebroplasty (~2017) T9 vertebroplasty. S/P left unicompartmental knee replacement surgery October 2019 Family History Family History Father Acute myocardial infarction Mother Cancer Sibling Diabetes mellitus Sibling Hypertension Mother Family history of mental disorder Family history of pancreatic cancer Family history of colonic diverticulitis Other Cerebrovascular accident Social History Soci
[2019-11-05 20:00] VITALS: PULSE 109; RESP 18; O2SAT 97
[2019-11-05 22:00] VITALS: BP 100/71; PULSE 105; RESP 16; TEMP 36.5; O2SAT 95
[2019-11-06] MEDS: ceFAZolin 2 GM/D5W 50 ML 2 GM/50 ML BAG IVPB (05:56)
[2019-11-06 06:00] VITALS: BP 125/70; PULSE 84; RESP 20; TEMP 36.3; O2SAT 96
[2019-11-06 07:00] LABS: Estimated CRCL calculation 37 ml/min; Estimated Glomerular Filt Rate 54
[2019-11-06] MEDS: APIXABAN 5 MG TABLET PO (08:49)
--- NOTE | 2019-11-06 09:44 | PM.DS ---
DS: Admitting Diagnosis Admitting Diagnosis Admitting Diagnosis: Cellulitis Left Knee DS: Discharge Diagnosis Discharge Diagnosis (1) Wound cellulitis after surgery: Code(s): T81.49XA - Infection following a procedure, other surgical site, initial encounter Status: Acute Assessment and Plan: Plan to discharge home today. Instructions reviewed in detail with the patient and her daughter. Follow-up will be arranged through my office. DS: Summary Time Spent with Patient Time attestation: Total time spent providing and/or coordinating discharge services: Exam Const: General: cooperative, no acute distress and alert Nutritional Appearance: other Orientation/consciousness: patient oriented x3 Limitations: no limitations HENMT: Head: normal to inspection Ears: hearing grossly normal bilaterally Face and sinus: face symmetric Mouth: Yes moist mucous membranes Teeth and gingiva: fair dentition Eyes: Alignment and Position: alignment normal and position normal Sclera: sclerae normal Neck: Neck: normal visual inspection and nontender Chest: Chest palpation & inspection: normal inspection of the chest Resp: Effort & Inspection: normal respiratory effort and able to speak in complete sentences Skin: General skin exam: normal color Rashes: no rashes Neuro: General: patient oriented x3 Cognition (Neuro): normal cognition Speech: normal speech Gait exam (Neuro): Other gait observations present Sensory Exam: normal sensation Extrem: General: normal to inspection and other Other: Exam of The left knee reveals some bronze-like erythema which has been unchanged in spite of being on the antibiotics. This has all of the hallmarks a chemical type irritation and not infection. No pain with passive range of motion of the joint. No appreciable effusion in the joint. Neurovascular status left lower extremity unremarkable Psych: Appearance: grossly normal Mental Status: mental status grossly normal DS: Data Data Completed and Pending Labs on day of discharge: Labs from last 24 hours 11/06/19 06:09 Creatinine 1.00 Estim Creat Clear Calc 37 Estimated GFR 54 L Imaging Attestation: I personally reviewed and interpreted this imaging study as follows: Discharge Plan Discharge Attending physician on discharge: Liban Blair Consulting providers: Diya Tatum Discharging Clinician: Liban Blair Anticipated Discharge Date/Time: 11/06/19 09:39 Patient Disposition: Home, Self-Care Activity: may shower and follow weight bearing status Diet: regular Wound Care Instructions: other - see discharge instructions Discharge Instructions: 3 times daily for 20 minutes each time, recline in bed with ice machine over the incision and a pillow underneath the affected calf. Your wound is glued so it is okay to get into the shower and get the wound wet. Be sure to read through all the information that came from a my office and the hospital. Most of the answer was you will need can be found that material. Call the office with any questions that you cannot find answers to, or concerns you may have. Please call my office in about three weeks to update me on your progress. Be sure to get up and move around several times daily but do not overdo it. Use arthritis formula Tylenol 650 mg one tablet every 8 hours. Can take up to two more of the 650 mg tablets in a 24 hour period along with the prescribed pain medication. Patient Instructions: Antibiotic Form, Apixaban (By mouth), Safe Use of Anticoagulants (DC), Blood Thinners (DC) Stand Alone Forms: General Discharge Information Follow-up/Referrals: Liban Blair MD [Physician] - Discharge Medications: New Nucynta 50 mg tablet 50 mg PO Q6H PRN (Reason: pain) Qty: 30 RF: 0 amoxicillin-pot clavulanate [Augmentin] 500-125 mg tablet 1 tablet PO Q12H Qty: 14 RF: 0 Continued rosuvastatin 20 mg tablet 10 m
== END 2019-11-06 10:44 | disposition home or self-care (01) ==
LOC: ANHED 19:28 → ANH3MEDSUR 22:25
PROVIDERS: Emergency Medicine Emergency Medical Services; Admitting Provider Orthopaedic Surgery; Emergency Provider Family Medicine; PCP Family Medicine; Visit Provider Orthopaedic Surgery
DX: T81.49XA Infection following a procedure, other surgical site, initial encounter (principal); L03.116 Cellulitis of left lower limb; Z96.652 Presence of left artificial knee joint; I10 Essential (primary) hypertension; I48.0 Paroxysmal atrial fibrillation; E78.5 Hyperlipidemia, unspecified; M17.0 Bilateral primary osteoarthritis of knee; K21.9 Gastro-esophageal reflux disease without esophagitis; I25.2 Old myocardial infarction; Z79.01 Long term (current) use of anticoagulants; Z79.899 Other long term (current) drug therapy; Z88.2 Allergy status to sulfonamides; Z88.8 Allergy status to other drugs, medicaments and biological substances
CPT/HCPCS: 36415; 80048; 82565; 85025; 85652; 86140; 96361; 96365; 96367; 96372; 96376; 99285; A9270; G0378; J0690; J1650; J3370; J7030; J7040

== ENCOUNTER 2020-10-29 10:39 | Outpatient (CLI) | payer MEDICARE, SELFPAY ==
--- NOTE | ~2020-10-29 | MR_ITS ---
EXAMINATION: MR knee RT wo con DATE: 10/29/2020 11:33 INDICATION: Right knee pain TECHNIQUE: Magnetic resonance imaging (MRI) of the right knee was performed without intravenous contr ast. Sequences included coronal PD-weighted FSE, coronal PD-weighted FS FSE, sagittal T2-weighted FS E, sagittal PD-weighted FS FSE and axial PD weighted fat saturated FSE. COMPARISON: None. FINDINGS: Medial compartment: There is medial extrusion of the medial meniscal body. There is a complex tear of the medial meniscus including a small meniscal flap which is subluxed cephalad along the medial rim of the anterior weig htbearing medial femoral condyle. There is extensive full and near full-thickness cartilage loss invo lving the anterior two thirds of the medial tibial plateau and the majority of the anterior to centra l weightbearing medial femoral condyle there is minimal cortical irregularity and mild reticular cyst ic change at the central weightbearing medial femoral condyle and a couple small regions of mild suba rticular edema or anteriorly along the weightbearing femoral condyle and along the anterior medial ma rgins of the medial tibial plateau. Moderate size marginal osteophytes are present. Lateral compartment: Lateral meniscus is normal. Cartilage thickness is relatively preserved in the lateral compartment bu t with deep chondral fissuring without degenerative subchondral changes along significant portions of the weightbearing lateral femoral condyle, along the posterior third of the lateral tibial plateau a nd minimally anteriorly underlying the free edge of the anterior horn of the meniscus. Small marginal osteophytes are present. Patellofemoral compartment: Extensive deep chondral ulceration with minimal cortical irregularity at the cephalad half of the api ministerio ridge and medial facet. Mild shallow fissuring at the lateral facet. Partial-thickness chondral u lceration with deep fissuring at the trochlear groove and medial trochlea with minimal cortical irreg ularity inferiorly. Small marginal osteophytes are present. Ligaments and tendons: Anterior and posterior cruciate ligaments are normal. Fibular collateral ligament complex is normal. Mild thickening and mild increase likely proximal medial collateral ligament without surrounding rober a consistent with mild scarring related to chronic sprain. Patellar tendon is normal. Mild distal dean driceps tendinopathy with small enthesophytes at its patellar insertion. The visualized medial and la teral hamstring tendons as well as the iliotibial band are normal. Fluid: Minimal right knee joint effusion with synovitis at the suprapatellar pouch. There are small multilob ulated ganglion cysts at the posterior aspect of the knee along the posterior margin of the medial an d lateral femoral condyles and extending caudally along the popliteal recess. 6 mm loose osteochondra l body within the ganglion cyst at the popliteal recess and 3 mm loose osteochondral body in the rece ss anterior to the intercondylar notch. Osseous/other: Bone marrow signal is normal. No fracture or pathologic marrow replacing process. IMPRESSION: 1. Complex tear of the medial meniscus. 2. 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 Reviewed, dictated and finalized at location A. IMPRESSION: 1. Complex tear of the medial meniscus. 2. 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
== END 2020-10-29 10:40 | disposition home or self-care (01) ==
PROVIDERS: PCP Internal Medicine; Visit Provider Orthopaedic Surgery
DX: M17.11 Unilateral primary osteoarthritis, right knee (principal); S83.231A Complex tear of medial meniscus, current injury, right knee, initial encounter; X58.XXXA Exposure to other specified factors, initial encounter
CPT/HCPCS: 73721

== ENCOUNTER 2020-11-21 13:30 | Outpatient (RCR) | payer MEDICARE, SELFPAY | END 2021-02-11 11:47 | disposition home or self-care (01) | LOC: ANHPT 13:30 | PROVIDERS: PCP Internal Medicine; Visit Provider Orthopaedic Surgery | DX: M17.11 Unilateral primary osteoarthritis, right knee (principal) | CPT/HCPCS: 99199 ==

== ENCOUNTER 2020-12-19 07:44 | Outpatient (CLI) | payer MEDICARE, SELFPAY ==
--- NOTE | 2020-12-19 08:33 | ECG_ITS ---
Measurements Intervals Griffin Rate: 53 P: -6 HI: 200 QRS: -34 QRSD: 86 T: -6 QT: 454 QTc: 428 Interpretive Statements SINUS BRADYCARDIA LEFT AXIS DEVIATION POOR R WAVE PROGRESSION, ANTERIOR LEADS BORDERLINE T WAVE ABNORMALITY- INFERIOR LEADS BASELINE ARTIFACT- I, II, III, AVR, AVL, AVF BORDERLINE ECG Electronically Signed On 12-19-2020 9:04:53 CDT by Jake Gardner D.O.
[2020-12-19 09:07] LABS: Basophils Percent Auto 0.4 % (0.2-1.2); Eosinophils Absolute Auto 0.3 K/mm3 (0-0.3); Eosinophils Percent Auto 5.3 % (0-4.4); Hematocrit 43.6 % (37.0-47.0); Hemoglobin 13.8 g/dL (12.0-15.0); Immature Granulocyte Absolute 0.01 K/mm3 (0.00-0.031); Immature Granulocyte Percent A 0.2 % (0-0.5); Lymphocytes Absolute Auto 1.15 K/mm3 (0.9-3.2); Lymphocytes Percent Auto 22.4 % (18.3-44.2); Mean Corpuscular HGB Conc 31.7 g/dl (32-36); Mean Corpuscular Hemoglobin 30.3 pg (26-34); Mean Corpuscular Volume 95.8 fl (80-100); Mean Platelet Volume 9.6 fl (7.4-10.4); Monocytes Absolute Auto 0.5 K/mm3 (0.1-0.6); Monocytes Percent Auto 10.5 % (2.6-8.5); Neutrophils Absolute Auto 3.2 K/mm3 (1.3-6.7); Neutrophils Percent Auto 61.2 % (45.5-73.1); Platelet Count Result 161 k/mm3 (150-375); Red Blood Count 4.55 M/mm3 (4.2-5.4); Red Cell Distribution Width 13.1 % (11.5-14.5); White Blood Count 5.1 K/mm3 (4.5-10.0)
== END 2020-12-19 07:45 | disposition home or self-care (01) ==
LOC: ANHSURGERY 07:49
PROVIDERS: PCP Internal Medicine; Visit Provider Orthopaedic Surgery
DX: M17.11 Unilateral primary osteoarthritis, right knee (principal); I10 Essential (primary) hypertension; Z01.818 Encounter for other preprocedural examination; R94.31 Abnormal electrocardiogram [ECG] [EKG]
CPT/HCPCS: 36415; 85025; 86850; 86900; 86901; 87081; 93005

== ENCOUNTER 2020-12-31 11:34 | Observation (INO) | payer MEDICARE, SELFPAY ==
[2020-12-19 08:18] VITALS: BP 125/78; PULSE 56; RESP 18; TEMP 36.6; O2SAT 96; BMI 29.4
--- NOTE | 2020-12-27 18:13 | WPDANESEPPF ---
Anes - Initial Pre Proc Eval Procedure: Operation Date: 12/30/20 07:30 Proposed Procedures p Right Unicompartmental Knee Replacement - Liban Blair MD Date/Time: 12/30/20729 Surgeon: Liban Blair MD Pre Op Diagnosis: OA Right Knee Patient Data Age: 75 Gender: F Height: 1.55 m Weight: 70.7 kg Last Vital Signs Temp 36.6 C 12/19/20 08:18 Pulse 56 L 12/19/20 08:18 Resp 18 12/19/20 08:18 BP 125/78 12/19/20 08:18 Pulse Ox 96 12/19/20 08:18 Allergies Allergy/AdvReac Type Severity Reaction Status Date / Time Sulfa (Sulfonamide Allergy Mild Itching Verified 12/19/20 08:08 Antibiotics) trimethoprim Allergy Unknown Itching Verified 12/19/20 08:08 Home Medications Medication Instructions Recorded Confirmed Type Eliquis 5 mg PO BID #60 tablet 01/27/19 12/24/20 Rx metoprolol succinate [Toprol XL] 100 mg PO QPM #30 tablet 01/27/19 12/24/20 Rx rosuvastatin 20 mg tablet 20 mg PO DAILY tablet 04/17/19 12/24/20 History acetaminophen 650 mg 1,300 mg PO Q8H 11/30/19 12/24/20 History tablet,extended release paroxetine HCl 20 mg tablet 20 mg PO DAILY #90 tablet 04/19/20 12/24/20 Rx mecobalamin (vitamin B12) 1,000 1,000 mcg PO DAILY #1 tablet 08/26/20 12/24/20 Rx mcg chewable tablet omega-3 fatty acids 1,000 mg 2,000 mg PO BID cap 10/23/20 12/24/20 History capsule folic acid 800 mg PO HS 12/19/20 12/24/20 History guar gum [Chewable Fiber] 1 g QAM 12/19/20 12/24/20 History Patient hx anesthesia problems: none Family hx anesthesia problems: none Results Review: All pre-operative results and documents have been reviewed as part of the pre-operative evaluation. [facility] Past Medical History Medical History (Updated 12/27/20 @ 18:14 by Tr Guadarrama DO) Anxiety Colon cancer screening Depression Distal radius fracture, right Diverticulosis Elevated homocysteine Encounter for annual wellness exam in Medicare patient Encounter to establish care FHx: type 2 diabetes mellitus Functional fecal incontinence Gastroesophageal reflux Hearing loss History of back injury History of shingles Hx of colonic polyps Hyperlipidemia Hypertension Irritable bowel syndrome correction current use of anticoagulant Myocardial infarct Abnormal EKG a outpatient office. Negative chemical stress test in 2019. On continuous churn buttermaker drug therapy Osteoarthritis of left knee Osteoarthritis of right knee Paroxysmal atrial fibrillation Personal history of COVID-19 Pre-diabetes Primary osteoarthritis of both knees Rectal polyp Urinary leakage Surgical History Surgical History History of cataract extraction (08/28/19) Per Dr. Herrera. History of colonoscopy with polypectomy (~2014) Hyperplastic polyp. History of hemorrhoidectomy History of shoulder surgery (~1992) Right shoulder reconstruction. History of tonsillectomy History of vertebroplasty (~2017) T9 vertebroplasty. S/P left unicompartmental knee replacement surgery October 2019 Family History Family History Father Acute myocardial infarction Mother Cancer Sibling Diabetes mellitus Sibling Hypertension Mother Family history of mental disorder Family history of pancreatic cancer Family history of colonic diverticulitis Other Cerebrovascular accident Social History Social History Social History: The patient lives in [place] with her of 64 years. She is her 's primary caregiver, he suffers from Parkinson's and dementia. I believe they have 4 children. 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 She is a lifelong nonsmoker. She does drink alcohol on occasion. Code status is full code. Primary care physician is Dr. Isabel Tomlinson. Smoking status: Never smoker Alcohol intake: never Substance use: never Living arrange
--- NOTE | 2020-12-27 18:14 | WPDANESPNB ---
Anes - Peripheral Nerve Block Date/Time: 12/30/20 07:30 I have discussed with the patient/family/POA the placement of a peripheral nerve block for post-operative pain management, including associated risks, benefits, complications, and side effects. Alternative methods of post-operative analgesia were detailed. Questions were solicited and answers provided to the satisfaction of the patient/family/POA. Time-Out: A pre-procedural Time-Out was completed immediately before starting the procedure and confirmed: Patient Identification, Site, Procedure, Patient Position and the Availability of Requisite Equipment. Clinical Indications: Acute post-operative pain management requested by the operative surgeon. Nerve Block Insertion Note Anes-nerve block: adductor canal right Patient position: supine Skin prep: chlorhexidine Needle: 22 gauge, stimulating, insulated echogenic needle. Needle length: 80 mm Technique: ultrasound Injectate: bupivacaine 0.5% with epi 5 mcg/ml (30cc - no epi) Observations: tolerated well Complications: none Procedure start time:: 723 Procedure end time:: 727
[2020-12-30] VITALS (22 sets, daily range): BP systolic 126–179; BP diastolic 70–96; PULSE 63–83; RESP 10–20; TEMP 35.7–37.2; O2SAT 95–100; BMI 31.3
[2020-12-30] MEDS: ACETAMINOPHEN 500 MG TABLET 1000 MG PO ×2 (06:27→18:31)
[2020-12-30] MEDS: LACTATED RINGERS 1,000 ML 30 ML IV CONT ×2 (06:34→09:41)
[2020-12-30] MEDS: TRANEXAMIC ACID 1,000MG/ISO100 1,000 MG/100 ML BAG 200 MG IVPB (06:37)
[2020-12-30] MEDS: ONDANSETRON INJ 4 MG/2 ML VIAL IV PUSH ×4 (06:38→18:55)
--- NOTE | 2020-12-30 07:17 | WPDHPUPDATE1 ---
History and Physical Update Update Date/Time: 12/30/20 07:17 History and Physical has been reviewed, including an updated exam of the patient. There are NO changes in the patient's condition. Risks, benefits, and alternatives have been discussed and questions answered. Patient agrees to proceed with procedure.
[2020-12-30] MEDS: ceFAZolin 2 GM/D5W 50 ML 2 GM/50 ML BAG IVPB (07:27)
[2020-12-30] MEDS: TRANEXAMIC ACID 1,000 MG/10 ML AMPUL 1000 MG TOPICAL (08:12)
--- NOTE | 2020-12-30 09:51 | P.OP_ITS ---
Procedure Note - Detailed Date of Procedure 12/30/20 Pre-op Diagnosis OA Right Knee Post-op Diagnosis same Procedure Performed right knee unicompartmental replacement Surgeon Liban Blair MD Pipe And Boiler Covers Supervisor Barby Dominguez Anesthesia general and regional Description of Procedure The patient was identified and the proper site identified. In the preop holding area the anesthesia team performed a right lower extremity block. She was then taken to the operating room and transferred to the OR table placing her supine taking care to pad his torso and extremities. After general anesthetic induction and intubation. a nonsterile tourniquet was placed high on the right thigh. The extremity was positioned, prepped, and draped in the usual sterile fashion. The extremity was exsanguinated and the tourniquet was inflated to 300 mmHg remaining up for approximately 48 minutes. An anterior midline incision was made and sharp dissection carried down through the subcutaneous tissue to the extensor mechanism. A modified medial parapatellar arthrotomy was performed. The articular and meniscal cartilage of the lateral compartment was inspected and noted to be in excellent shape. Anterior and posterior cruciate ligaments were in continuity. There were extensive degenerative changes medial compartment and milder patellofemoral changes. The marginal osteophytes were removed from the notch and the medial aspect of the medial femoral condyle, and the remaining meniscal tissue was removed. The femur was sized to a small. With the appropriate spoon and tibial guide, a tibial resection was made. This was sized to size A. Using the mill, the flexion and extension gaps were balanced. A trial reduction was undertaken. The range of motion of the knee was noted to be from full extension to 120? of flexion with excellent stability through range of motion. The polyethylene inse rt tracked nicely. The trial components were removed. The real small femur and size A tray for the right knee were cemented into place. The knee was held in about 30? of flexion while the cement cured. The tourniquet was released and excess cement was removed from the joint. Hemostasis was carried out. The knee was flushed with a copious amount of irrigation. After trialing, the appropria te real size three insert for the femoral component was inserted and the stability again assessed. The knee was noted to be stable as it was taken through range of motion. The periarticular tissues were infiltrated with a total of 60 milliliters of the arthroplasty solution and 1 g of tranexamic acid was left in the wound after a 3 minutes Betadine bath wound. The extensor mechanism was repaired with 0 looped PDS suture, the subcu with 2-0 Stratafix and tissue adhesive for the skin. A sterile dressing was applied. The patient tolerated the procedure well, was awakened, extubated, and taken to recovery room in stable condition. Estimated Blood Loss -150.0 Tourniquet Time 48 Drains No Packing No Pathology none sent Complications No immediate complications Condition stable Disposition PACU
[2020-12-30] MEDS: fentaNYL CITRATE INJ (*CRX) 100 MCG/2 ML VIAL 25 MCG IV PUSH (10:20)
--- NOTE | 2020-12-30 11:51 | ADMGEN ---
This patient, Cherry Coleman, was admitted to Medical Room 245-01. Patient oriented to hospital policies and general routines including ID bracelet, bed and alarms, visiting hours, pain management, procedures, bathroom and other care routines, personal items, smoking policy, room service/diet, and visiting hours. Information on how to activate the Rapid Response Team has been discussed. Patient are encouraged to report perceived risks to care and to ask questions if they do not understand what they are told or what they should do.
[2020-12-30] MEDS: SODIUM CHLORIDE 0.9% IV 1,000 ML 125 ML IV CONT (12:18)
[2020-12-30] MEDS: oxyCODONE HCL (*CRX) 5 MG TAB IR PO ×4 (13:08→23:05)
[2020-12-30] MEDS: METOPROLOL SUCCINATE EXT REL 100 MG TABCR PO (18:30)
[2020-12-30] MEDS: CELECOXIB 200 MG CAPSULE PO (18:30)
[2020-12-30] MEDS: DOCUSATE SODIUM 100 MG CAPSULE PO (18:30)
[2020-12-30] MEDS: FAMOTIDINE 20 MG TABLET PO (20:04)
[2020-12-30] MEDS: FOLIC ACID 0.4 MG TABLET 0.8 MG PO (20:04)
[2020-12-31] VITALS (7 sets, daily range): BP systolic 106–160; BP diastolic 53–62; PULSE 65–78; RESP 16–18; TEMP 36.3–37.2; O2SAT 92–100
--- NOTE | ~2020-12-31 | XR_ITS ---
EXAMINATION: KNEE ONE/TWO VIEW-RIGHT DATE: 12/30/2020 09:54 INDICATION: Postoperative evaluation following right knee medial unicompartmental arthroplasty TECHNIQUE: Anteroposterior and lateral views of the right knee were obtained. COMPARISON: Right knee MRI dated 10/29/2020 FINDINGS: Right knee medial unicompartmental arthroplasty appears well seated and in near anatomic alignment. S mall lucency projecting over the patellar apical ridge which could be related to either the expected postoperative subcutaneous and intra-articular gas or degenerative cystic change which would be new s pro the prior MRI. No fractures identified. IMPRESSION: 1. Right knee medial unicompartmental arthroplasty, negative for postoperative purposes. Reviewed, dictated and finalized at location A.
[2020-12-31] MEDS: ONDANSETRON INJ 4 MG/2 ML VIAL IV PUSH (00:05)
[2020-12-31] MEDS: oxyCODONE HCL (*CRX) 5 MG TAB IR PO ×5 (00:48→12:48)
--- NOTE | 2020-12-31 07:41 | PM.PNORT ---
Progress Note: A&P Assessment and Plan (1) History of right knee joint replacement: Code(s): Z96.651 - Presence of right artificial knee joint Status: Acute Assessment and Plan: 75-year-old female postop day one right knee unicompartmental replacement. Will have her do therapy today and I would anticipate her being able to be discharged home tomorrow. We discussed this today. I will communicate this to her daughter who will be looking after her when she goes home. Subjective Subjective Date/Time Seen: 12/31/20 07:41 Post Op day: 1 Principal diagnosis: postop day one right knee unicompartmental replacement Interval history: This document created with [id number] technology and is subject to seismic survey assistant irregularities. 75-year-old female postop day one right knee unicompartmental replacement. Is experiencing a modest amount of pain this morning and has not done much moving around as of yet. Review of Systems Constitutional: Constitutional: Denies chills and Denies fever(s) Eyes: Eyes: Reports no additional eye complaints ENT: Reports system reviewed and no additional complaints, except as documented Cardiovascular: Cardiovascular: Denies chest pain and Denies dyspnea on exertion Respiratory: Respiratory: Reports no additional respiratory complaints and Denies dyspnea on exertion Gastrointestinal: Gastrointestinal: Denies abdominal pain and Denies bloating Exam Const: General: cooperative, no acute distress and alert Nutritional Appearance: other Orientation/consciousness: patient oriented x3 Limitations: no limitations HENMT: Head: normal to inspection Ears: hearing grossly normal bilaterally Face and sinus: face symmetric Mouth: Yes moist mucous membranes Teeth and gingiva: fair dentition Eyes: Alignment and Position: alignment normal and position normal Sclera: sclerae normal Neck: Neck: normal visual inspection and nontender Chest: Chest palpation & inspection: normal inspection of the chest Resp: Effort & Inspection: normal respiratory effort and able to speak in complete sentences GI: Inspection: other ( Nondistended) Skin: General skin exam: normal color Rashes: no rashes Neuro: General: patient oriented x3 Cognition (Neuro): normal cognition Speech: normal speech Gait exam (Neuro): Other gait observations present Extrem: General: normal to inspection and other Other: Exam of the right knee does show modest bruising but very little swelling. Grossly motor and sensory function intact right lower extremity. Calves negative. Psych: Appearance: grossly normal Mental Status: mental status grossly normal Objective Data Vital Signs Vital Signs: Vital Signs - 24 hr 12/30/20 09:41 12/30/20 09:45 12/30/20 10:00 Temperature 97.3 F L Pulse Rate 78 78 75 Respiratory Rate 10 L 20 13 Blood Pressure 159/87 H 179/84 H 164/83 H Pulse Oximetry 99 100 100 12/30/20 10:15 12/30/20 10:30 12/30/20 10:45 Temperature Pulse Rate 81 76 83 Respiratory Rate 16 12 16 Blood Pressure 157/88 H 146/86 H 158/86 H Pulse Oximetry 96 96 96 12/30/20 11:00 12/30/20 11:15 12/30/20 11:25 Temperature Pulse Rate 73 73 71 Respiratory Rate 12 12 12 Blood Pressure 151/78 H 154/89 H 155/90 H Pulse Oximetry 95 96 96 12/30/20 11:40 12/30/20 11:55 12/30/20 12:09 Temperature 96.3 F L 96.7 F L 96.7 F L Pulse Rate 79 71 Respiratory Rate 18 18 18 Blood Pressure 152/96 H 149/87 H 149/87 H Pulse Oximetry 97 98 98 12/30/20 12:25 12/30/20 12:38 12/30/20 13:25 Temperature 97.2 F L 96.9 F L Pulse Rate 64 79 Respiratory Rate 18 18 Blood Pressure 144/79 H 161/93 H Pulse Oximetry 96 95 98 12/30/20 13:34 12/30/20 17:25 12/30/20 17:30 Temperature 97.8 F Pulse Rate 63 Respiratory Rate 16 Blood Pressure 129/72 Pulse Oximetry 98 95 97 12/30/20 18:30 12/30/20 19:58 12/30/20 21:10 Temperature 98.9 F Pulse Rate 70 70 69 Respiratory Rate 18 16 Blood Press
[2020-12-31] MEDS: FAMOTIDINE 20 MG TABLET PO ×2 (08:55→21:31)
[2020-12-31] MEDS: PARoxetine 20 MG TABLET PO (08:55)
[2020-12-31] MEDS: CELECOXIB 200 MG CAPSULE PO ×2 (08:55→16:48)
[2020-12-31] MEDS: APIXABAN 5 MG TABLET PO ×2 (08:55→16:48)
[2020-12-31] MEDS: DOCUSATE SODIUM 100 MG CAPSULE PO ×2 (08:55→16:48)
[2020-12-31] MEDS: polyethylene glycoL 3350 17 GM POWD.PACK PO (08:55)
[2020-12-31] MEDS: METOPROLOL SUCCINATE EXT REL 100 MG TABCR PO (16:48)
[2020-12-31] MEDS: ACETAMINOPHEN 500 MG TABLET 1000 MG PO (16:49)
--- NOTE | 2020-12-31 19:50 | PC.NURSE ---
CONSTANTINO Rivera walked into patients room when bed alarm was going off and seen patient reaching for end of bed to turn off the bed alarm.
[2020-12-31] MEDS: FOLIC ACID 0.4 MG TABLET 0.8 MG PO (21:30)
[2021-01-01 03:31] VITALS: BP 118/55; PULSE 58; RESP 16; TEMP 36; O2SAT 95
[2021-01-01] MEDS: FAMOTIDINE 20 MG TABLET PO (08:49)
[2021-01-01] MEDS: CELECOXIB 200 MG CAPSULE PO (08:49)
[2021-01-01] MEDS: PARoxetine 20 MG TABLET PO (08:49)
[2021-01-01] MEDS: DOCUSATE SODIUM 100 MG CAPSULE PO (08:49)
[2021-01-01] MEDS: ACETAMINOPHEN 500 MG TABLET 1000 MG PO (08:49)
[2021-01-01] MEDS: APIXABAN 5 MG TABLET PO (08:49)
[2021-01-01] MEDS: polyethylene glycoL 3350 17 GM POWD.PACK PO (08:51)
--- NOTE | 2021-01-01 11:27 | PM.DS ---
DS: Admitting Diagnosis Discharge Date January 01, 2021 Admitting Diagnosis degenerative arthritis right knee DS: Discharge Diagnosis Discharge Diagnosis (1) History of right knee joint replacement: Code(s): Z96.651 - Presence of right artificial knee joint Status: Acute Assessment and Plan: Patient will be discharged home today. Follow-up will be with me in about two weeks. This was reviewed with the patient and her daughter. They were instructed to call with any questions prior to follow-up. DS: Summary Hospital Course Reason for hospitalization: Observation after outpatient procedure. Hospital Course: After the patient's surgery, she was admitted to the floor for observation. On postop day one she was having quite a bit of discomfort and developed some confusion. The medication was backed off and her mentation improved considerably. She did have a mishap with a witnessed fall in the bathroom which was more of a slipping to the ground. There were no injuries with this. She suffered no ill affects. Status at Discharge Cognitive/behavioral status at discharge: Alert and oriented x3. Functional status at discharge: uses cane/walker Exam Const: General: cooperative, no acute distress and alert Nutritional Appearance: other Orientation/consciousness: patient oriented x3 HENMT: Head: normal to inspection Ears: hearing grossly normal bilaterally Face and sinus: face symmetric Mouth: Yes moist mucous membranes Teeth and gingiva: fair dentition Eyes: Alignment and Position: alignment normal and position normal Sclera: sclerae normal Neck: Neck: normal visual inspection and nontender Chest: Chest palpation & inspection: normal inspection of the chest Resp: Effort & Inspection: normal respiratory effort and able to speak in complete sentences GI: Inspection: other ( Nondistended, nontender) Skin: General skin exam: normal color Rashes: no rashes Neuro: General: patient oriented x3 Cognition (Neuro): normal cognition Speech: normal speech Gait exam (Neuro): Other gait observations present Extrem: General: normal to inspection and other Other: Exam of the right knee shows dry incision. Modest swelling circumferentially around the knee but no evidence for significant hemarthrosis. Neurovascular status unremarkable. Calves negative. Psych: Appearance: grossly normal Mental Status: mental status grossly normal Discharge Plan Discharge Discharging Clinician: Liban Blair Patient Disposition: Home, Self-Care Activity: other - see discharge instructions Diet: as tolerated Discharge Instructions: 3 times daily for 20 minutes each time, reclining in bed with ice packs over the incision and a pillow underneath the calf of the affected leg, not under the knee. Use the Michael wrap to apply gentle compression to your knee for the first 3-4 days. Do not over tighten, or your foot will swell. Your wound is glued so it is okay to get into the shower and get the wound wet in two days. Be sure to read through all the information that came from a my office and the hospital. Most of the answers you will need can be found that material. Call the office with any questions that you cannot find answers to, or concerns you may have. You will be taking the Celebrex twice daily for one week. It is okay to take this with the Candice. Please call [facility] at as soon as possible to verify your follow-up appointment to be seen in 2 weeks. Also, call the office with any orthopedic/surgical related questions prior to follow-up. Be sure to get up and move around several times daily but do not overdo it. Take the arthritis formula Tylenol 650 mg tablet on an 8 hour schedule. A good 8 hour schedule is: 6:00 a.m., 2:00 p.m., 10:00 p.m. you may take the prescribed pain medication along with the Tylenol; it is not to be taken instead of the Tylenol. I would like for you to take
== END 2021-01-01 14:05 | disposition home or self-care (01) ==
LOC: ANHSURGERY 17:16 → ANH2MED 17:16
PROVIDERS: Admitting Provider Orthopaedic Surgery; PCP Internal Medicine; Visit Provider Orthopaedic Surgery
PROC: (CPT 27446; principal; 2020-12-30 07:30)
DX: M17.11 Unilateral primary osteoarthritis, right knee (principal); I10 Essential (primary) hypertension; G89.18 Other acute postprocedural pain
CPT/HCPCS: 27447; 64447; 73560; 97110; 97116; 97161; 97165; 97530; 97535; A9270; C1713; C1776; G0378; J0171; J0690; J2270; J2405; J2704; J2795; J3010; J7030; J7120

== ENCOUNTER 2021-02-03 11:57 | Outpatient (CLI) | payer MEDICARE, SELFPAY ==
--- NOTE | ~2021-02-03 | US_ITS ---
EXAMINATION: US venous doppler LE RT DATE: 02/03/2021 12:35 INDICATION: Right lower limb pain. TECHNIQUE: Grayscale ultrasound images without and with compression and Doppler ultrasound images of the right lower extremity veins were obtained. COMPARISON: None. FINDINGS: The visualized portions of right common femoral vein, profunda (deep) femoral vein, femoral vein, pop liteal vein, peroneal veins, posterior tibial veins, and greater saphenous vein outflow are patent. IMPRESSION: 1. No deep venous thrombosis. Reviewed, dictated and finalized at location B. SCHOOL ACADEMIC COACH
== END 2021-02-03 11:58 | disposition home or self-care (01) ==
LOC: ANHIMG 12:02
PROVIDERS: PCP Internal Medicine; Visit Provider Orthopaedic Surgery
DX: M79.604 Pain in right leg (principal); M79.89 Other specified soft tissue disorders
CPT/HCPCS: 93971

== ENCOUNTER 2021-04-07 08:53 | Outpatient (CLI) | payer MEDICARE, SELFPAY ==
--- NOTE | ~2021-04-07 | MM_ITS ---
EXAMINATION: MM screening [facility] BI w tab HISTORY: Screening mammogram TECHNIQUE: Craniocaudal and mediolateral oblique 3-D tomosynthesis images were obtained and synthetic 2-D images were generated. CAD analysis was submitted and interpreted. COMPARISON: 03/28/2019, 03/13/2014, 02/11/2011 BREAST PARENCHYMAL COMPOSITION: There are scattered areas of fibroglandular density. FINDINGS: RIGHT BREAST: There is no evidence of suspicious mass, calcification, or architectural distortion to suggest malignancy. There has been no significant interval change. LEFT BREAST: An asymmetry is present in the middle third of the breast best appreciated 8 cm from the nipple slightly above the nipple axis on the mediolateral oblique view. IMPRESSION: 1. Left breast asymmetry on the mediolateral oblique view. 2. Additional mammographic views and possible breast ultrasound are recommended. BI-RADS Category 0: Incomplete: Needs additional imaging evaluation. Reviewed, dictated and finalized at location A. CAL ASSISTANT SUPERVISOR IMPRESSION: 1. Left breast asymmetry on the mediolateral oblique view. 2. Additional mammographic views and possible breast ultrasound are recommended . BI-RADS Category 0: Incomplete: Needs additional imaging evaluation.
== END 2021-04-07 08:54 | disposition home or self-care (01) ==
LOC: ANHIMG 08:55
PROVIDERS: PCP Internal Medicine; Visit Provider Internal Medicine
DX: Z12.31 Encounter for screening mammogram for malignant neoplasm of breast (principal); R92.8 Other abnormal and inconclusive findings on diagnostic imaging of breast
CPT/HCPCS: 77063; 77067

== ENCOUNTER 2021-04-18 13:00 | Outpatient (RCR) | payer MEDICARE, SELFPAY ==
--- NOTE | 2021-03-24 10:02 | PTOPEVAL ---
Thank you for referring Cherry Coleman to [facility].? The patient is scheduled to be seen for therapy? 2x/week for 4 weeks. Please review, sign, date and return this plan of care NIHARIKA. I agree with and certify that the following plan of care is medically necessary. Referring Physician Date Attending Provider: Liban Blair MD Onset 12/30/20 Additional Evaluation Detail She has steps to basement with blaze rails left partial TKR 1.5 yrs ago, right knee 01/02. Subjective Information She did not receive therapy Query Text:As Reported By Patient/ after knee surgery. Family She was performing HEP daily for knee ROM of seated knee flex/ext, AP, supine SLR, QS. She has increased pain with prolonged standing and walking, squating motion, lifting task and heavier activities. She negotiates steps 1 at a time with use of rails. She rides the scooter at the stores or she requires support of the cart. Pain Assessment Right Knee(s) Reported Pain Level 4 Pain Description Aching Pain Frequency Chronic,Continuous Lowest Pain Intensity 1 Greatest Pain Intensity 4 Pain Aggravating Factors ADL's,Bending,Exercise/ Activity,Lifting,Prolonged Position,Stair Climbing,Supine ,Weight Bearing/Standing Lower Extremity Range of Motion General Lower Extremity Range of Motion Gross Lower Extremity Range of Motion left knee ROM: 0-125 dg Comments Knee Range of Motion Right Knee Flexion Range of Motion - Active 110 Knee Extension Range of Motion - Active -10 Query Text: Lower Extremity Muscle Strength Testing Hip Strength Bilateral Hip Flexion Strength 4 Good Hip Extension Strength 3+ Fair + Hip Abduction Strength 3 Fair Knee Strength Bilateral Knee Flexion Strength 4 Good Knee Extension Strength 4+ Good + Ankle Strength Bilateral Ankle Dorsiflexion Strength 5 Normal Posture Standing Position Shoulder Posture (L) Rounded,(R) Rounded Scapula Posture (L) Protracted,(R) Protracted, (R) Depressed Weight Distribution Weight Shifted Left Knee Posture (R) Excess Flexion Additional Posture Comments right side of trunk/pelvis shifte
--- NOTE | 2021-04-17 09:12 | PCPTNOTE ---
Patient called & cancelled scheduled appointment this date due to bad weather.
--- NOTE | 2021-04-22 07:45 | PCPTNOTE ---
Patient called & cancelled scheduled appointment this date due to being in the hospital. Will contact MD for a new order.
--- NOTE | 2021-05-13 10:28 | PCPTNOTE ---
Admitting Provider: Attending Provider: Liban Blair MD Patient:Cherry Coleman Date of :1945 Physical Therapy Discharge Note Patient has not returned for any further treatments since 04/18/2021, therefore she will be discharged at this time. Patient?s initial visit was on 03/24/2021 and she had a total of 8 visits. The goals have been not met due to not able to reassessment prior to DC. Thank you for referring this patient to [facility]. Please review, sign, date and return this discharge summary NIHARIKA. I have been updated about the patient's current status and I agree with discharge from the above service at this time. Referring Physician Date
== END 2021-05-14 09:08 | disposition home or self-care (01) ==
LOC: ANHPT 13:00
PROVIDERS: PCP Internal Medicine; Visit Provider Orthopaedic Surgery
DX: Z47.1 Aftercare following joint replacement surgery (principal); Z96.651 Presence of right artificial knee joint
CPT/HCPCS: 97110; 97140; 97161

== ENCOUNTER 2021-04-20 20:18 | Inpatient (IN) | payer MEDICARE, SELFPAY ==
[2021-04-20] VITALS (14 sets, daily range): BP systolic 111–129; BP diastolic 74–92; PULSE 82–125; RESP 15–23; TEMP 36.6; O2SAT 95–99
--- NOTE | ~2021-04-20 | XR_ITS ---
EXAMINATION: XR chest 2V EXAM DATE: 04/20/2021 20:43 INDICATION: neck pain SINCE 1500 TODAY, HX AFIB, HX HTN. TECHNIQUE: Frontal and lateral projections of the chest obtained and reviewed. Comparison is made to prior examination from 02/15/2019. FINDINGS: No confluent consolidation, pneumothorax or pleural effusion suspected. The lungs are valdez r. There are no pleural effusions. The cardiomediastinal silhouette is within normal limits. There is no pneumothorax suspected. Moderate anterior wedging of a mid to lower thoracic vertebral body, with methylmethacrylate injection. There is tortuosity of the aorta. IMPRESSION: No acute cardiopulmonary findings. Reviewed, dictated and finalized at location [facility] SIGN
--- NOTE | 2021-04-20 20:24 | ECG_ITS ---
Measurements Intervals [place] Rate: 115 P: 17 CA: 177 QRS: -62 QRSD: 78 T: 20 QT: 326 QTc: 452 Interpretive Statements SINUS TACHYCARDIA LEFT ANTERIOR FASCICULAR BLOCK POOR R WAVE PROGRESSION, ANTERIOR LEADS BASELINE WANDER- V4-V6 ABNORMAL ECG Electronically Signed On 04-21-2021 6:14:51 SERVICES ADVISOR by Jake Gardner D.O.
--- NOTE | 2021-04-20 20:42 | ED.CHESTPAIN ---
HPI - Chest Pain General Chief Complaint: Arrhythmia/Palpitations Stated Complaint: gabriel reports she has neck pain like last time Time Seen by Provider: 04/20/21 20:37 Source: patient Mode of arrival: ambulatory Limitations: no limitations History of Present Illness HPI narrative: Patient is a 76-year-old female sent here by her PCP, Dr. Madison, due to upper chest discomfort radiating to neck. Patient has a history of atrial fib and currently on Eliquis. Patient states that she had some chest discomfort earlier but now resolved. Patient denies any shortness of breath, abdominal pain, nausea, vomiting, diaphoresis, fever or chills. Patient has no complaints at this time. MD complaint: chest discomfort Timing of current episode: now resolved Prior episodes: Yes Onset: during rest Pain location: substernal Pain radiation: none Severity: mild Quality: tightness Relieving factors: nothing Exacerbating factors: nothing Related Data Home Medications Medication Instructions Recorded Confirmed rosuvastatin 20 mg tablet 20 mg PO DAILY tablet 04/17/19 02/25/21 omega-3 fatty acids 1,000 mg 2,000 mg PO BID cap 10/23/20 02/25/21 capsule folic acid 800 mg PO HS 12/19/20 02/25/21 guar gum 1 g QAM 12/19/20 02/25/21 paroxetine HCl 10 mg PO DAILY 04/20/21 rosuvastatin mg 04/20/21 Allergies Allergy/AdvReac Type Severity Reaction Status Date / Time Sulfa (Sulfonamide Allergy Mild Itching Verified 04/20/21 20:34 Antibiotics) trimethoprim Allergy Unknown Itching Verified 04/20/21 20:34 Review of Systems Review of Systems: All systems reviewed & are unremarkable except as noted in HPI and below Constitutional: Constitutional: Denies body ache(s), Denies chills, Denies excessive sweating, Denies fatigue, Denies fever(s), Denies headache(s), Denies lethargy, Denies malaise, Denies weakness and Denies weight loss Eyes: Eyes: Denies blurry vision, Denies change in vision and Denies loss of vision ENT: Denies dizziness, Denies ear discharge, Denies headache(s), Denies lip swelling, Denies epistaxis, Denies nasal congestion, Denies neck pain, Denies throat swelling and Denies tongue swelling Cardiovascular: Cardiovascular: Denies diaphoresis, Denies edema, Denies lightheadedness, Denies palpitations, Denies dyspnea and Denies dyspnea on exertion Respiratory: Respiratory: Denies chest congestion, Denies cough, Denies hemoptysis, Denies dyspnea and Denies dyspnea on exertion Gastrointestinal: Gastrointestinal: Denies abdominal pain, Denies melena, Denies hematochezia, Denies diarrhea, Denies nausea, Denies vomiting and Denies hematemesis Musculoskeletal: Musculoskeletal: Denies abnormal gait, Denies deformity, Denies joint swelling, Denies limited range of motion, Denies neck pain and Denies numbness Neurologic: Denies Abnormal speech present, Denies abnormal gait, Denies confusion, Denies dizziness, Denies headache(s), Denies focal weakness, Denies loss of vision, Denies numbness, Denies Other visual disturbances, Denies Sensory deficit (Neuro) and Denies weakness Psychiatric: Psychiatric: Denies confusion, Denies depression, Denies auditory hallucinations, Denies homicidal ideation and Denies suicidal ideation Endocrine: Endocrine: Denies cold intolerance, Denies excessive sweating, Denies fatigue, Denies heat intolerance and Denies palpitations Hematologic/Lymphatic: Hematologic/Lymphatic: Denies easy bleeding and Denies easy bruising Allergic/Immunologic: Allergic/Immunologic: Denies lip swelling, Denies throat swelling and Denies tongue swelling PMFSH Past Medical History Medical History Anxiety Colon cancer screening Depression Distal radius fracture, right Diverticulosis Elevated homocysteine Encounter for annual wellness exam in Medicare patient Encounter to establish care FHx: type 2 diabetes mellitus Functional fecal incontinence Gastroesophageal reflux Hearing loss
[2021-04-20 21:00] LABS: Basophils Percent Auto 0.5 % (0.2-1.2); Eosinophils Absolute Auto 0.2 K/mm3 (0-0.3); Hemoglobin 14.5 g/dL (12.0-15.0); Immature Granulocyte Absolute 0.02 K/mm3 (0.00-0.031); Immature Granulocyte Percent A 0.3 % (0-0.5); Lymphocytes Absolute Auto 1.34 K/mm3 (0.9-3.2); Lymphocytes Percent Auto 16.8 % (18.3-44.2); Mean Corpuscular HGB Conc 32.2 g/dl (32-36); Mean Corpuscular Hemoglobin 30.8 pg (26-34); Mean Corpuscular Volume 95.5 fl (80-100); Mean Platelet Volume 9.7 fl (7.4-10.4); Monocytes Absolute Auto 0.8 K/mm3 (0.1-0.6); Monocytes Percent Auto 10.1 % (2.6-8.5); Neutrophils Absolute Auto 5.6 K/mm3 (1.3-6.7); Neutrophils Percent Auto 70.3 % (45.5-73.1); Platelet Count Result 179 k/mm3 (150-375); Red Blood Count 4.71 M/mm3 (4.2-5.4); Red Cell Distribution Width 13.3 % (11.5-14.5)
[2021-04-20 21:10] LABS: INR 1.1; Prothrombin Time 13.7 Seconds (11.1-14.7)
[2021-04-20 21:11] LABS: Partial Thromboplastin Time 30.2 SECONDS (22.3-36.8)
[2021-04-20 21:22] LABS: Troponin I 0.014 ng/mL (0.000-0.034)
[2021-04-20 21:45] LABS: Alanine Aminotransferase 19 U/L (4-35); Alkaline Phosphatase 88 U/L (38-126); Anion Gap 8 mmol/L (8-16); Aspartate Amino Transferase 26 U/L (14-36); Bilirubin,Total 1.4 mg/dL (0.2-1.3); Blood Urea Nitrogen 16 mg/dL (7-17); Calcium 9.4 mg/dL (8.4-10.2); Carbon Dioxide 22 mmol/L (22-30); Chloride 105 mmol/L (98-107); Estimated CRCL calculation 31 ml/min; Estimated Glomerular Filt Rate 43; Glucose 145 mg/dL (65-110); Lipase 178 U/L (23-300); Potassium 4.4 mmol/L (3.4-5.0); Sodium 135 mmol/L (137-145)
--- NOTE | 2021-04-20 22:31 | PM.IMHP ---
H&P: HPI History of Present Illness Date/Time: 04/20/21 22:31 Chief Complaint: Chest discomfort. Narrative: This is a 76-year-old female with past medical history significant for atrial fibrillation rate control and anticoagulated, chronic kidney disease, degenerative joint disease, status post bilateral total knee arthroplasty, dyslipidemia, depression. Patient presented to the emergency room after she had an episode of chest discomfort with jaw pain bilaterally radiating to the shoulders and back and dizziness patient has been in her usual state of health up until this morning when this happened and it lasted for roughly 3 hours when she finally decided to come to the emergency room seeking medical advice. Patient denies any fevers any rigors ,any chills ,she has had a productive cough of scanty yellowish to greenish phlegm, no nausea, no vomiting, no abdominal pain, no diarrhea, no syncope or near syncope, no chest pain, no PND, no orthopnea ,no leg swelling ,no ankle swelling. Patient was found to have a heart rate of 125 upon presentation to emergency room. Patient received metoprolol in the emergency room and decision was made to place her in observation. Preliminary workup has been essentially nonrevealing. Patient tested negative for COVID and a chest x-ray was cleared. Review of Systems Review of Systems: Neck and jaw pain, dizziness, chest discomfort. Constitutional: Constitutional: Denies body ache(s), Denies chills, Denies fatigue, Denies fever(s), Denies headache(s), Denies lethargy, Denies malaise, Denies night sweats, Denies poor appetite and Denies weakness Eyes: Eyes: Denies change in vision ENT: Denies dysphagia, Denies vertigo, Reports dizziness, Denies nasal congestion, Denies nasal discharge, Denies nasal obstruction and Denies odynophagia Cardiovascular: Cardiovascular: Reports chest pain, Reports chest pain at rest, Denies pedal edema, Reports irregular heart rhythm, Denies claudication, Denies leg edema, Reports lightheadedness, Reports radiating jaw, neck or arm pain, Denies palpitations, Denies dyspnea on exertion, Denies orthopnea and Denies paroxysmal nocturnal dyspnea Respiratory: Respiratory: Denies change in phlegm color, Reports cough and Denies excessive phlegm production Gastrointestinal: Gastrointestinal: Denies abdominal pain, Denies dyspepsia, Denies heartburn, Denies diarrhea and Denies nausea Genitourinary: Genitourinary: Denies dysuria and Denies flank pain Musculoskeletal: Musculoskeletal: Denies arthralgias, Denies joint swelling and Reports neck pain Integumentary/Breasts: Skin/Breast: Denies rash Neurologic: Denies vertigo, Denies dizziness, Denies syncope, Denies focal weakness and Denies Sensory deficit (Neuro) Psychiatric: Psychiatric: Reports no additional psychiatric complaints and Reports as per HPI Endocrine: Endocrine: Denies cold intolerance, Denies fatigue, Denies heat intolerance, Denies polyphagia and Denies palpitations Hematologic/Lymphatic: Hematologic/Lymphatic: Reports no additional hematologic/lymphatic complaints and Reports as per HPI Allergic/Immunologic: Allergic/Immunologic: Reports no additional allergic/immunologic complaints and Reports as per HPI PMFSH Past Medical History Medical History (Updated 04/21/21 @ 03:01 by Bhargav Clancy MD) Anxiety Colon cancer screening Depression Distal radius fracture, right Diverticulosis Elevated homocysteine Encounter for annual wellness exam in Medicare patient Encounter to establish care FHx: type 2 diabetes mellitus Functional fecal incontinence Gastroesophageal reflux Hearing loss History of back injury History of shingles Hx of colonic polyps Hyperlipidemia Hypertension 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 Negative chemical stress test in 2020. On fpc drug therapy Osteoarthritis of left knee Osteoarthritis of right knee Paro
[2021-04-20] MEDS: METOPROLOL TARTRATE INJ 5 MG/5 ML VIAL IV PUSH (22:56)
[2021-04-21] VITALS (21 sets, daily range): BP systolic 100–140; BP diastolic 64–86; PULSE 75–90; RESP 18–20; TEMP 36.1–36.8; O2SAT 95–100
--- NOTE | 2021-04-21 | ECHO_ITS ---
Patient Info Name: Cherry Coleman Age: 76 years : 1945 Gender: Female Ht: 61 in Wt: 155 lbs BSA: 1.76 m2 HR: 81 bpm BP: 116 / 68 mmHg Heart Rhythm: Sinus Rhythm Technical Quality: Fair Exam Date: 04/21/2021 8:45 AM Exam Location: [facility] Patient Status: Outpatient Admit Date: 04/20/2021 Staff Ordering Physician: Bhargav Clancy MD [place]anning Solution Maker: Andreina Calzada RDCS Attending Provider: Bhargav Clancy MD Referring Physician: Julieth REHMAN; Exam Type: CA echo doppler color flow Study Info Indications - Chest discomfort Complete two-dimensional, color flow and Doppler transthoracic echocardiogram is performed. Summary 1. Complete two-dimensional, color flow and Doppler transthoracic echocardiogram is performed. 2. Left ventricular chamber dimension is normal. 3. Left ventricular systolic function is normal, estimated at 60-65%. 4. There is mildly increased left ventricular wall thickness. 5. The left ventricular diastolic function is grade I diastolic dysfunction. 6. Left atrial chamber dimension is mildly enlarged. 7. There is mild aortic valve regurgitation. 8. There is mild mitral valve regurgitation. 9. There is mild tricuspid valve regurgitation. 10. The pericardium appears thickened pericardium. 11. There is small pericardial effusion. Left Ventricle Left ventricular chamber dimension is normal. Left ventricular systolic function is normal, estimated at 60-65%. There is mildly increased left ventricular wall thickness. The left ventricular diastolic function is grade I diastolic dysfunction. Right Ventricle Right ventricular chamber dimension is normal. Right ventricular systolic function is normal. Left Atria Left atrial chamber dimension is mildly enlarged. Right Atria Right atrial chamber dimension is normal. Atrial Septum Intact interatrial septum visualized by color flow imaging. Aortic Valve The aortic valve is trileaflet. There is mild aortic valve sclerosis. There is no aortic valve stenosis. There is mild aortic valve regurgitation. Pulmonic Valve The pulmonic valve is normal. There is no pulmonic valve stenosis. There is trace pulmonic regurgitation. Mitral Valve The mitral valve has calcified annulus. There is no mitral valve stenosis. There is mild mitral valve regurgitation. Tricuspid Valve The tricuspid valve leaflets are normal. There is no significant tricuspid valve stenosis. There is mild tricuspid valve regurgitation. No pulmonary hypertension, estimated pulmonary arterial systolic pressure is 31 mmHg. Pericardium/Pleural The pericardium appears thickened pericardium. There is small pericardial effusion. Inferior Vena Cava Normal inferior vena cava with >50% collapse upon inspiration consistent with normal right atrial pressure, 10 mmHg. Aorta The aortic root size at the sinus of Valsalva is borderline dilated. Left Ventricular Outflow Tract Name Value Normal LVOT 2D LVOT Diameter 2.0 cm LVOT Doppler LVOT Peak Gradient 4 mmHg LVOT Mean Gradient 2 m
[2021-04-21 00:08] LABS: Troponin I 0.023 ng/mL (0.000-0.034)
[2021-04-21 00:09] LABS: SARS-CoV-2 RNA PCR Negative
--- NOTE | 2021-04-21 01:43 | ADMGEN ---
This patient, Cherry Coleman, was admitted to IMU Room 206-02. Patient/family oriented to hospital policies and general routines including ID bracelet, bed and alarms, visiting hours, pain management, procedures, bathroom and other care routines, personal items, smoking policy, room service/diet, and visiting hours. Information on how to activate the Rapid Response Team has been discussed. Patient/Family are encouraged to report perceived risks to care and to ask questions if they do not understand what they are told or what they should do.
[2021-04-21] MEDS: METOPROLOL SUCCINATE EXT REL 100 MG TABCR PO ×2 (02:38→20:23)
[2021-04-21] MEDS: APIXABAN 5 MG TABLET PO ×2 (02:38→10:03)
[2021-04-21 03:24] LABS: Troponin I 0.041 ng/mL (0.000-0.034)
[2021-04-21] MEDS: calcium polycarbophiL 625 MG TABLET PO (10:02)
[2021-04-21] MEDS: ROSUVASTATIN 10 MG TABLET 20 MG PO (10:02)
[2021-04-21] MEDS: CYANOCOBALAMIN 1,000 MCG TABLET 1000 MCG PO (10:03)
[2021-04-21] MEDS: PARoxetine 10 MG TABLET PO (10:03)
[2021-04-21] MEDS: OMEGA 3 POLYUNSAT FATTY ACIDS 1 GM CAP 2 GM PO ×2 (10:03→16:48)
--- NOTE | 2021-04-21 11:06 | PM.CNCAR ---
Assessment and Plan Assessment and plan (1) Elevated troponin: Code(s): R77.8 - Other specified abnormalities of plasma proteins Status: Acute Assessment and Plan: Her chest pain is concerning. EKG does not show atrial fibrillation. Shows simple mild sinus tachycardia. Given her elevated troponin and throat tightening and jaw pain, this is a true non ST-elevation myocardial infarction until proven otherwise. Will continue metoprolol, statin. Will give her low-dose aspirin 81 mg p.o. daily. Will hold Eliquis. Keep NPO after midnight for coronary angiogram tomorrow if able. She verbalized understanding and is agreeable. Echocardiogram is ordered and will be reviewed. Will repeat an EKG now. Will repeat a troponin until peak (2) Paroxysmal atrial fibrillation: Code(s): I48.0 - Paroxysmal atrial fibrillation Status: Acute Assessment and Plan: Continue metoprolol but will hold Eliquis temporarily (3) snf current use of anticoagulant: Code(s): Z79.01 - snf (current) use of anticoagulants Status: Acute Assessment and Plan: On Eliquis but being held for potential angiogram (4) Hypertension: Qualifiers: Hypertension type: essential hypertension Qualified Code(s): I10 - Essential (primary) hypertension Code(s): I10 - Essential (primary) hypertension Status: Acute Assessment and Plan: At goal. (5) Hyperlipidemia: Qualifiers: Hyperlipidemia type: mixed hyperlipidemia Qualified Code(s): E78.2 - Mixed hyperlipidemia Code(s): E78.5 - Hyperlipidemia, unspecified Status: Acute Assessment and Plan: On statin. History of Present Illness History of Present Illness Consult date/time: 04/21/21 11:06 Requesting physician: Carroll Wilcox MD Consult reason: chest pain Reason For Visit: chest pain Narrative: Date of service 04/21/2021 Reason for consultation: Chest pain Requesting provider: Dr. Wilcox History: Patient is a 76-year-old female who follows with Dr. Cueva as an outpatient. She has a history of paroxysmal atrial fibrillation, hypertension, hyperlipidemia came to the hospital because of neck and jaw pain. Patient states that she started to feel poorly around noon. She was eating lunch became dizzy. She then became woozy and laid down. She then developed some tightening of her throat and some achiness in her lower jaw. It is present off and on for about 3 hours. She would have episodes of his last for about 10 minutes at a time and then it would spontaneously go away. It was then later come back. She had no other associated symptoms of shortness of breath or diaphoresis. Because of her persistent symptoms, she came to the hospital for further workup. EKG showed sinus tachycardia. She was given metoprolol which did gradually improve her symptoms. She has had some lower extremity swelling which is not new or different. She denies any paroxysmal nocturnal dyspnea, orthopnea, syncope, presyncope, palpitations or bleeding issues. Her troponins have trended positive. Review of Systems Review of Systems: All systems reviewed & are unremarkable except as noted in HPI and below Constitutional: Constitutional: Denies weakness Eyes: Eyes: Denies blurry vision ENT: Reports Normal hearing present Cardiovascular: Cardiovascular: Reports chest pain Respiratory: Respiratory: Denies dyspnea Gastrointestinal: Gastrointestinal: Denies abdominal pain Genitourinary: Genitourinary: Denies flank pain Musculoskeletal: Musculoskeletal: Denies back pain and Denies neck pain Integumentary/Breasts: Skin/Breast: Denies dry skin Neurologic: Denies headache(s) Psychiatric: Psychiatric: Denies anxiety and Denies confusion Endocrine: Endocrine: Denies excessive sweating and Denies fatigue Hematologic/Lymphatic: Hematologic/Lymphatic: Denies easy bleeding Allergic/Immunologic: Allergic/Im
--- NOTE | 2021-04-21 11:18 | ECG_ITS ---
Measurements Intervals [place] Rate: 80 P: 24 SC: 184 QRS: -47 QRSD: 87 T: 2 QT: 404 QTc: 466 Interpretive Statements SINUS RHYTHM LOW QRS VOLTAGE IN PRECORDIAL LEADS LEFT ANTERIOR FASCICULAR BLOCK MINIMAL Q WAVES- HIGH LATERAL LEADS LATERAL INFARCT, AGE INDETERMINATE BORDERLINE T WAVE ABNORMALITY- INFERIOR LEADS ABNORMAL ECG Electronically Signed On 04-21-2021 13:00:00 ROD MACHINE OPERATOR by Jake Gardner D.O.
--- NOTE | 2021-04-21 12:26 | PM.IMPN ---
Progress Note: A&P Assessment and Plan (1) Atypical chest pain: Code(s): R07.89 - Other chest pain Status: Acute Assessment and Plan: Admit to IMU Bed rest Vitals as per unit protocol Continuous telemetry Continuous pulse ox Restart home meds Troponin elevated x1, repeat per cards Echocardiogram-->EF 60-65%, grade I diastolic dysfunction Cardiology consult, recommendations appreciated Tele monitoring Cardiac cath tomorrow (2) Paroxysmal atrial fibrillation: Code(s): I48.0 - Paroxysmal atrial fibrillation Status: Acute Assessment and Plan: Rate controlled Hold Eliquis for CC Continue BB Monitor (3) Atrial fibrillation with rapid ventricular response: Code(s): I48.91 - Unspecified atrial fibrillation Status: Acute Assessment and Plan: Patient received 5 mg IV of metoprolol in emergency room Heart rate came down to low 100s Resume metoprolol XL 100 p.o. daily (4) HTN (hypertension): Qualifiers: Hypertension type: essential hypertension Qualified Code(s): I10 - Essential (primary) hypertension Code(s): I10 - Essential (primary) hypertension Status: Acute Assessment and Plan: Resume home meds Continue to monitor (5) Gastroesophageal reflux: Code(s): K21.9 - Gastro-esophageal reflux disease without esophagitis Status: Acute Assessment and Plan: PPI as needed (6) Primary osteoarthritis of both knees: Code(s): M17.0 - Bilateral primary osteoarthritis of knee Status: Acute Assessment and Plan: Status post bilateral knee arthroplasty (7) Depression: Qualifiers: Depression Type: unspecified Qualified Code(s): F32.9 - Major depressive disorder, single episode, unspecified Code(s): F32.9 - Major depressive disorder, single episode, unspecified Status: Acute Assessment and Plan: Continue paroxetine Follow-up in outpatient setting Subjective Date/time seen: 04/21/21 12:26 Interval history: Pt seen and evaluated; labs, vs, diagnostic results, consult notes reviewed; pt denies any CP, SOB, or DHILLON Review of Systems Review of Systems: All systems reviewed & are unremarkable except as noted in HPI and below Exam Const: General: no acute distress, alert and awake Orientation/consciousness: patient oriented x3 HENMT: Head: normocephalic and atraumatic Ears: hearing grossly normal bilaterally and external ears normal Face and sinus: face symmetric Mouth: Yes Normal oral and palatal mucosa present Eyes: EOM: EOMs intact bilaterally Neck: Neck: full ROM, trachea midline and no JVD Resp: Effort & Inspection: normal respiratory effort Auscultation: clear to auscultation bilaterally Cardio: Jugular venous distension: no JVD Rate: regular rate Rhythm: regular rhythm Heart sounds: S1 normal heart sound present and S2 normal heart sound present GI: GI Palp: Yes Soft to palpation Auscultation: normal bowel sounds : General: Yes no CVA tenderness Skin: General skin exam: normal color Rashes: no rashes Neuro: General: patient oriented x3 and no focal motor deficits Speech: normal speech Extrem: General: no clubbing, cyanosis or edema Psych: Appearance: grossly normal Affect: normal affect Judgement: Good judgement present (Psych) Objective Data Vital Signs Vital Signs: Vital Signs - 24 hr 04/20/21 20:21 04/20/21 20:29 04/20/21 22:35 Temperature 36.6 C Pulse Rate 125 H 115 H 108 H Respiratory Rate 20 18 17 Blood Pressure 111/74 129/84 Pulse Oximetry 99 98 96 04/20/21 22:45 04/20/21 22:46 04/20/21 22:54 Temperature Pulse Rate 104 H 108 H 107 H Respiratory Rate 20 23 H 15 Blood Pressure 127/88 127/88 Pulse Oximetry 95 95 97 04/20/21 22:56 04/20/21 23:16 04/20/21 23:17 Temperature Pulse Rate 108 H 83 84 Respiratory Rate 23 H 17 Blood Pressure Pulse Oximetry 99 97 04/20/21 23:30 04/20/21 23:31 04/20/21
[2021-04-21] MEDS: ASPIRIN 81 MG ENTERIC TABLET PO (12:41)
[2021-04-21] MEDS: FOLIC ACID 0.4 MG TABLET PO (20:23)
[2021-04-22] VITALS (14 sets, daily range): BP systolic 101–119; BP diastolic 60–72; PULSE 63–79; RESP 18–20; TEMP 36–36.8; O2SAT 93–99
[2021-04-22 05:15] LABS: Hematocrit 40.6 % (37.0-47.0); Hemoglobin 13.3 g/dL (12.0-15.0); Mean Corpuscular HGB Conc 32.8 g/dl (32-36); Mean Corpuscular Hemoglobin 31.1 pg (26-34); Mean Corpuscular Volume 95.1 fl (80-100); Mean Platelet Volume 9.8 fl (7.4-10.4); Platelet Count Result 149 k/mm3 (150-375); Red Blood Count 4.27 M/mm3 (4.2-5.4); Red Cell Distribution Width 13.2 % (11.5-14.5); White Blood Count 4.8 K/mm3 (4.5-10.0)
[2021-04-22 05:25] LABS: Anion Gap 8 mmol/L (8-16); Blood Urea Nitrogen 22 mg/dL (7-17); Carbon Dioxide 23 mmol/L (22-30); Chloride 104 mmol/L (98-107); Estimated CRCL calculation 34 ml/min; Estimated Glomerular Filt Rate 48; Glucose 110 mg/dL (65-110); Potassium 4.3 mmol/L (3.4-5.0); Sodium 135 mmol/L (137-145)
[2021-04-22] MEDS: ROSUVASTATIN 10 MG TABLET 20 MG PO (08:44)
[2021-04-22] MEDS: PARoxetine 10 MG TABLET PO (08:44)
[2021-04-22] MEDS: ASPIRIN 81 MG ENTERIC TABLET PO (08:44)
[2021-04-22] MEDS: CYANOCOBALAMIN 1,000 MCG TABLET 1000 MCG PO (08:44)
[2021-04-22] MEDS: calcium polycarbophiL 625 MG TABLET PO (08:44)
[2021-04-22] MEDS: OMEGA 3 POLYUNSAT FATTY ACIDS 1 GM CAP 2 GM PO ×2 (08:45→17:28)
--- NOTE | 2021-04-22 10:12 | PM.IMPN ---
Progress Note: A&P Assessment and Plan (1) Atypical chest pain: Code(s): R07.89 - Other chest pain Status: Acute Assessment and Plan: Patient here for nack and upper back/shoulder tightness felt to be anginal equivalent. EKG showing poor R wave progression but appears chronic. Troponin peaked at 0.041. CXR clear. COVID negative. Echo: EF 60-65%, grade I diastolic dysfunction and thickened pericardium. Cardiology consulted and recommendations appreciated. Plan or C tomorrow (due to receiving Eliquis yesterday morning). Continue tele monitoring. Continue ASA, metoprolol and Crestor. (2) Paroxysmal atrial fibrillation: Code(s): I48.0 - Paroxysmal atrial fibrillation Status: Acute Assessment and Plan: Patient with symptoms that she typically has with AFib/RVR but EKG on admission showing sinus tachycardia. She did receive Metoprolol 5mg IV once in the ED but no documentation to state that she was in AFib on presentation. Could have had AFib/RVR prior to admission and converted before presentation. Patient maintained normal sinus rhythm. She is on Eliquis at home and this is on hold at this time. Continue telemetry monitoring. (3) HTN (hypertension): Qualifiers: Hypertension type: essential hypertension Qualified Code(s): I10 - Essential (primary) hypertension Code(s): I10 - Essential (primary) hypertension Status: Acute Assessment and Plan: Patient's blood pressure was reviewed on 04/22 Blood pressure remains well controlled. Will continue current medications. (4) Depression: Qualifiers: Depression Type: unspecified Qualified Code(s): F32.9 - Major depressive disorder, single episode, unspecified Code(s): F32.9 - Major depressive disorder, single episode, unspecified Status: Acute Assessment and Plan: Mood is stable. We clarified with patient about her paroxetine. She was taking paroxetine 20 mg daily initially but weaned this to 10 mg daily a few years ago. More recently, she has been taking paroxetine 10 mg every other day. She states she spoke with her primary care doctor today who recommended continuing the 10 mg daily which will resume here. Follow-up in outpatient setting (5) DVT prophylaxis: Code(s): Z29.9 - Encounter for prophylactic measures, unspecified Status: Acute Assessment and Plan: SCDs Subjective Date/time seen: 04/22/21 10:12 Interval history: 76yo female with pAFib and HTN here for SOB and neck/upper back tightness. Symptoms came on at rest and was off/on for 3 hours occurring in bouts lasting about 5 minutes or so. She feels better today. No further symptoms. She denies having chest pain. She is agreeable to have the [facility]. Exam Narrative: AF 98.1 115/63 68 18 96% ra Gen - NARD Chest - CTA bilaterally,, nml RR CV - RRR S1/S2. Tele showing PVCs Abd - soft, NT/ND, +BS Ext - no pedal edema Neuro - nonfocal. Psych - alert, pleasant and cooperative Skin - warm and dry Objective Data Vital Signs Vital Signs: Vital Signs - 24 hr 04/21/21 12:00 04/21/21 12:37 04/21/21 14:00 Temperature 98.2 F Pulse Rate 81 80 90 Respiratory Rate 20 Blood Pressure 121/68 Pulse Oximetry 96 04/21/21 16:00 04/21/21 16:22 04/21/21 18:00 Temperature 98.2 F Pulse Rate 88 82 83 Respiratory Rate 20 Blood Pressure 100/68 Pulse Oximetry 97 04/21/21 20:00 04/21/21 20:23 04/21/21 20:35 Temperature 97.5 F L Pulse Rate 81 82 Respiratory Rate 20 Blood Pressure 110/64 Pulse Oximetry 99 95 04/21/21 22:00 04/22/21 00:00 04/22/21 02:00 Temperature 96.8 F L Pulse Rate 75 69 70 Respiratory Rate 20 Blood Pressure 119/70 Pulse Oximetry 97 04/22/21 04:00 04/22/21 05:45 04/22/21 08:00 Temperature 97.8 F 98.1 F Pulse Rate 69 66 68 Respiratory Rate 20 18 Blood Pressure 107/72 115/63 Pulse Oximetry 99 96 Intake/Output Intake
--- NOTE | 2021-04-22 11:13 | PM.PNCARD ---
Progress Note: A&P Assessment and Plan (1) Elevated troponin: Code(s): R77.8 - Other specified abnormalities of plasma proteins Status: Acute Assessment and Plan: Her chest pain is concerning. EKG does not show atrial fibrillation. Shows simple mild sinus tachycardia. Given her elevated troponin and throat tightening and jaw pain, this is a true non ST-elevation myocardial infarction until proven otherwise. Will continue metoprolol, statin. Continue to hold Eliquis. Will give a dose enoxaparin 40 mg subQ x1 for DVT prophylaxis. NPO after midnight for cardiac catheterization tomorrow (2) Paroxysmal atrial fibrillation: Code(s): I48.0 - Paroxysmal atrial fibrillation Status: Acute Assessment and Plan: Continue metoprolol but will hold Eliquis temporarily (3) nursing home current use of anticoagulant: Code(s): Z79.01 - nursing home (current) use of anticoagulants Status: Acute Assessment and Plan: On Eliquis but being held for angiogram (4) Hypertension: Qualifiers: Hypertension type: essential hypertension Qualified Code(s): I10 - Essential (primary) hypertension Code(s): I10 - Essential (primary) hypertension Status: Acute Assessment and Plan: At goal. (5) Hyperlipidemia: Qualifiers: Hyperlipidemia type: mixed hyperlipidemia Qualified Code(s): E78.2 - Mixed hyperlipidemia Code(s): E78.5 - Hyperlipidemia, unspecified Status: Acute Assessment and Plan: On statin. Subjective Date/time seen: 04/22/21 11:13 Interval history: 76yo female with pAFib and HTN here for SOB and neck/upper back tightness. Symptoms came on at rest and was off/on for 3 hours occurring in bouts lasting about 5 minutes or so. Date of service 04/22/2021: Feels okay. No chest pain or shortness of breath. Review of Systems Review of Systems: All systems reviewed & are unremarkable except as noted in HPI and below Constitutional: Constitutional: Denies excessive sweating, Denies fatigue, Denies headache(s) and Denies weakness Eyes: Eyes: Denies blurry vision ENT: Reports Normal hearing present, Denies headache(s) and Denies neck pain Cardiovascular: Cardiovascular: Reports chest pain and Denies dyspnea Respiratory: Respiratory: Denies dyspnea Gastrointestinal: Gastrointestinal: Denies abdominal pain Genitourinary: Genitourinary: Denies flank pain Musculoskeletal: Musculoskeletal: Denies back pain and Denies neck pain Integumentary/Breasts: Skin/Breast: Denies dry skin Neurologic: Reports Normal hearing present, Denies confusion, Denies headache(s) and Denies weakness Psychiatric: Psychiatric: Denies anxiety and Denies confusion Endocrine: Endocrine: Denies excessive sweating and Denies fatigue Hematologic/Lymphatic: Hematologic/Lymphatic: Denies easy bleeding Allergic/Immunologic: Allergic/Immunologic: Denies GI upset with certain foods Exam Narrative: Alert and oriented. Appears stated age Const: General: comfortable and no acute distress; No confusion Orientation/consciousness: No confusion HENMT: General nose exam: Normal nares present Eyes: Sclera: sclerae normal Neck: Neck: not supple and no JVD Chest: Other: No reproducible chest wall pain to palpation Resp: Auscultation: clear to auscultation bilaterally Cardio: Rate: regular rate Rhythm: regular rhythm GI: Inspection: non-distended Auscultation: normal bowel sounds Skin: General skin exam: normal color Neuro: General: No confusion Cranial nerves: Yes Normal hearing present Cognition (Neuro): normal cognition Speech: normal speech Extrem: General: normal to inspection and no edema Psych: Mental Status: mental status grossly normal Objective Data Vital Signs Vital Signs: Vital Signs - 24 hr 04/21/21 12:00 04/21/21 12:37 04/21/21 14:00 Temperature 36.8 C Pulse Rate 81 80 90 Respiratory Rate 20 Blood Pressure 1
[2021-04-22] MEDS: ENOXAPARIN 40 MG/0.4 ML SYRINGE SUB-Q (12:25)
[2021-04-22] MEDS: METOPROLOL SUCCINATE EXT REL 100 MG TABCR PO (20:36)
[2021-04-22] MEDS: FOLIC ACID 0.4 MG TABLET PO (20:36)
[2021-04-23] VITALS (15 sets, daily range): BP systolic 108–134; BP diastolic 64–78; PULSE 57–92; RESP 16–22; TEMP 36.1–36.6; O2SAT 95–99
[2021-04-23] MEDS: PARoxetine 10 MG TABLET PO (09:27)
[2021-04-23] MEDS: OMEGA 3 POLYUNSAT FATTY ACIDS 1 GM CAP 2 GM PO (09:28)
[2021-04-23] MEDS: ASPIRIN 81 MG ENTERIC TABLET PO (09:28)
[2021-04-23] MEDS: ROSUVASTATIN 10 MG TABLET 20 MG PO (09:28)
[2021-04-23] MEDS: CYANOCOBALAMIN 1,000 MCG TABLET 1000 MCG PO (09:28)
[2021-04-23] MEDS: calcium polycarbophiL 625 MG TABLET PO (09:28)
--- NOTE | 2021-04-23 09:31 | WPDMODSED ---
Moderate Sedation Note-Pt Data Patient Data Diagnosis: acute coronary syndrome Present Complaint: chest pain Procedure to be performed/Plan: left heart catheterization Allergies Allergy/AdvReac Type Severity Reaction Status Date / Time Sulfa (Sulfonamide Allergy Mild Itching Verified 04/20/21 20:34 Antibiotics) trimethoprim Allergy Unknown Itching Verified 04/20/21 20:34 Home Medications Medication Instructions Recorded Confirmed Type Eliquis 5 mg PO BID #60 tablet 01/27/19 04/21/21 Rx rosuvastatin 20 mg tablet 20 mg PO DAILY tablet 04/17/19 04/21/21 History mecobalamin (vitamin B12) 1,000 1,000 mcg PO DAILY #1 tablet 08/26/20 04/21/21 Rx mcg chewable tablet omega-3 fatty acids 1,000 mg 2,000 mg PO BID cap 10/23/20 04/21/21 History capsule fiber [Fiber Choice] 1 tablet PO DAILY 04/21/21 04/21/21 History folic acid 400 mcg PO HS 04/21/21 04/21/21 History metoprolol succinate [Toprol XL] 100 mg PO 04/21/21 04/21/21 History paroxetine HCl 20 mg tablet 20 mg PO DAILY #30 tablet 04/22/21 Rx Current Medications: Active Medications Apixaban (Apixaban 5 Mg Tablet) 5 mg PO BID [facility] Last Admin: 04/21/21 10:03 Dose: 5 mg Documented by: Aspirin (Aspirin 81 Mg Enteric Tablet) 81 mg PO [facility] Last Admin: 04/23/21 09:28 Dose: 81 mg Documented by: Calcium Polycarbophil (Calcium Polycarbophil 625 Mg Tablet) 625 mg PO DAILY [facility] Last Admin: 04/23/21 09:28 Dose: 625 mg Documented by: Cyanocobalamin (Cyanocobalamin 1,000 Mcg Tablet) 1,000 mcg PO DAILY [facility] Stop: 05/21/21 08:59 Last Admin: 04/23/21 09:28 Dose: 1,000 mcg Documented by: Fish Oil ([place] 3 Polyunsat Fatty Acids 1 Gm Cap) 2 gm PO BID [facility] Last Admin: 04/23/21 09:28 Dose: 2 gm Documented by: Folic Acid (Folic Acid 0.4 Mg Tablet) 0.4 mg PO [facility] Last Admin: 04/22/21 20:36 Dose: 0.4 mg Documented by: Metoprolol Succinate (Metoprolol Succinate Ext Rel 100 Mg Tabcr) 100 mg PO HS [facility] Last Admin: 04/22/21 20:36 Dose: 100 mg Documented by: Paroxetine HCl (Paroxetine 10 Mg Tablet) 10 mg PO DAILY [facility] Last Admin: 04/23/21 09:27 Dose: 10 mg Documented by: Perflutren Lipid Microsphere (Perflutren Lipid Microspheres 1.5 Ml Vial Diluted To 10 Ml Total Volume) 0 ml IV PUSH ONCE PRN; Protocol PRN Reason: adequate visualization Rosuvastatin Calcium (Rosuvastatin 10 Mg Tablet) 20 mg PO DAILY [facility] Last Admin: 04/23/21 09:28 Dose: 20 mg Documented by: Sedation/Anesthesia: No previous sedation/anesthesia problems (including family history). 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 Negative chemical stress test in 2019. On termite treater helper drug therapy Osteoarthritis of left knee Osteoarthritis of right knee Paroxysmal atrial fibrillation Personal history of COVID-19 Pre-diabetes Primary osteoarthritis of both knees Rectal polyp Urinary leakage Surgical History Surgical History History of cataract extraction (08/28/19) Per Dr. Herrera. History of colonoscopy with polypectomy (~2014) Hyperplastic polyp. History of hemorrhoidectomy History of right knee joint replacement right knee Uni on December 30, 2020 History of shoulder surgery (~1992) Right shoulder reconstruction. History of tonsillectomy History of vertebroplasty (~2017) T9 vertebroplasty. S/P left unicompartmental knee replacement surgery October 2019
--- NOTE | 2021-04-23 10:17 | P.PCNCC_ITS ---
Cardiac Cath Procedure Note Date of procedure:: 04/23/21 Performing physician:: Nikita Smith MD Indication:: Chest pain, acute coronary syndrome Brief clinical history:: this is a 76-year-old woman with a previous history of coronary disease but no history of coronary artery disease. She entered the hospital with an episode of chest pain and a very small troponin rise. Procedure Procedure performed:: Left ventriculogram coronary angiogram Angio-Seal to right femoral artery Sedation/Medication given:: fentanyl 50 mg Versed 2 mg case start time 9:58 a.m. case end time 10:13 a.m. sedation provided by Hua Escalante RN, trained observer Access site:: right femoral artery Estimated blood loss:: 15-20 cc Procedure note:: patient was brought to the cardiac catheterization lab in the postabsorptive state where the right femoral triangle was prepared and draped in the usual fashion. Anesthesia was provided with 1% lidocaine infiltrated locally. Using the modified Seldinger technique a 5 [place] vascular sheath was placed into the right common femoral artery. Left heart catheterization was then carried out. I used a 5 [place] angled pigtail catheter to measure left- sided hemodynamics and to inject LV g in the our AO projection. After this was standard 5 [place] FL4 catheter was used to engage the coronary artery. A 5 [place] JR4 catheter was used to engage and inject the right coronary artery. The cineangiograms were then reviewed and the case was terminated. An angiogram was done of the femoral artery through the sheath after which an Angio-Seal device was deployed with good hemostatic result. The procedure was uncomplicated and she left the carpenter labor supervisor with no sign of groin hematoma. Findings:: Hemodynamics: Central aortic pressure is 106 over 60 left ventricle 106/5 end-diastolic pressure 8 there is no gradient on pullback across the aortic valve. Left ventricle: The LV is normal in size all segments contract properly the global ejection fraction is visually estimated to be 60%. The left main coronary artery is large in caliber and widely patent left anterior descending is a moderate caliber artery extending down to the apex. There is an area of atherosclerosis resulting an ectatic dilatation in the proximal 3rd of the LAD. There is no stenosis in the LAD. This area of the ectasia results in slow clearing of contrast through this area. There is no filling defect or visible intravascular clot. The circumflex is a moderate caliber artery giving rise to the marginal branches. The circumflex system is angiographically free of disease. The right coronary artery is large in caliber and dominant to the posterior c irculation. The right coronary artery is also smooth and angiographically free of disease. Conclusion:: 1. Right coronary dominant circulation with no coronary artery stenosis as described above 2. area of ectatic dilatation in the proximal LAD which is a potential culprit lesion for acute coronary syndrome. 3. Normal left ventricular systolic function Nikita Smith MD FACC
[2021-04-23] MEDS: SODIUM CHLORIDE 0.9% IV 1,000 ML 125 ML IV CONT (11:10)
--- NOTE | 2021-04-23 15:05 | PCCCNOTE ---
On 04/23/21, the student, [Denise Wall ], provided care and [facility] this [facility]. I have reviewed the student's documentation and agree with the findings.
--- NOTE | 2021-04-23 15:39 | PM.DS ---
DS: Admitting Diagnosis Discharge Date 04/23/21 Admitting Diagnosis Neck tightness DS: Discharge Diagnosis Discharge Diagnosis (1) Atypical chest pain: Code(s): R07.89 - Other chest pain Status: Acute Assessment and Plan: Patient here for neck and upper back/shoulder tightness concerning for anginal equivalent. EKG showing poor R wave progression but appears chronic. Troponin peaked at 0.041. CXR was clear. COVID negative. Echo: EF 60-65%, grade I diastolic dysfunction and thickened pericardium. Cardiology consulted and [facility] recommended. [facility] EF 60% with LAD with an area of atherosclerosis resulting an ectatic dilatation in the proximal 3rd of the LAD. There is no stenosis in the LAD. This area of the ectasia results in slow clearing of contrast through this area. There is no filling defect or visible intravascular clot. The circumflex and dominant right coronary artery are free of disease. We continued ASA, metoprolol and Crestor. (2) Paroxysmal atrial fibrillation: Code(s): I48.0 - Paroxysmal atrial fibrillation Status: Acute Assessment and Plan: Patient with symptoms that she typically has with AFib/RVR but EKG on admission showing sinus tachycardia. She did receive Metoprolol 5mg IV once in the ED but no documentation to state that she was in AFib on presentation. Could have had AFib/RVR prior to admission and converted before presentation. Patient maintained normal sinus rhythm by tele. She is on Eliquis at home and this was held for [facility]. We continued her metoprolol. Resume Eliquis 04/25/21. (3) HTN (hypertension): Qualifiers: Hypertension type: essential hypertension Qualified Code(s): I10 - Essential (primary) hypertension Code(s): I10 - Essential (primary) hypertension Status: Acute Assessment and Plan: Patient's blood pressure was monitored closely and remained well controlled. (4) Depression: Qualifiers: Depression Type: unspecified Qualified Code(s): F32.9 - Major depressive disorder, single episode, unspecified Code(s): F32.9 - Major depressive disorder, single episode, unspecified Status: Acute Assessment and Plan: Mood remained stable stable. We clarified with patient about her paroxetine. She was taking paroxetine 20 mg daily initially but she weaned this to 10 mg daily a few years ago. More recently, she has been taking paroxetine 10 mg every other day. She states she spoke with her primary care doctor who recommended continuing the 10 mg daily which we resumed here. Follow-up in outpatient setting DS: Summary Hospital Course Reason for hospitalization: 76yo female with pAFib and HTN here for SOB and neck/upper back tightness. Symptoms came on at rest and was off/on for 3 hours occurring in bouts lasting about 5 minutes or so. Please see H&P for details Hospital Course: Please see above for details of hospital course Status at Discharge Cognitive/behavioral status at discharge: Stable Time Spent with Patient Time attestation: Total time spent providing and/or coordinating discharge services:35 minutes Time spent: Greater than 30 minutes Exam Narrative: AF 97.1 121/76 63 18 95% ra Gen - NARD Chest - CTA bilaterally,, nml RR CV - RRR S1/S2 Abd - soft, NT/ND, +BS Ext - no pedal edema Psych - alert, pleasant and cooperative Skin - warm and dry Discharge Plan Discharge Attending physician on discharge: Boubacar Alvarez Consulting providers: Arturo Cueva Discharging Clinician: Boubacar Alvarez Anticipated Discharge Date/Time: 04/23/21 15:47 Patient Disposition: Home, Self-Care Activity: other - see discharge instructions Diet: heart healthy Discharge Instructions: Post-heart catheterization activity instructions per Cardiology. Please avoid large gathering, wear face coverings in public and practice social distance. Take precautions to avoid falls.
== END 2021-04-23 17:52 | disposition home or self-care (01) | DRG 287 ==
LOC: ANHED 22:19 → ANHIMU 04-21 00:14
PROVIDERS: Emergency Medicine; Internal Medicine Cardiovascular Disease; Nurse Practitioner Adult Health; Specialist; Admitting Provider Internal Medicine; Emergency Provider Emergency Medicine; PCP Internal Medicine; Visit Provider Internal Medicine
PROC: 4A023N7 Measurement of Cardiac Sampling and Pressure, Left Heart, Percutaneous Approach (ICD-10-PCS; CPT 93452; principal; 2021-04-23 10:00)
PROC: 4A023N7 Measurement of Cardiac Sampling and Pressure, Left Heart, Percutaneous Approach (ICD-10-PCS; 2021-04-23 10:00)
DX: R07.89 Other chest pain (principal); R00.0 Tachycardia, unspecified; I48.0 Paroxysmal atrial fibrillation; F32.9 Major depressive disorder, single episode, unspecified; Z20.822 Contact with and (suspected) exposure to COVID-19; K21.9 Gastro-esophageal reflux disease without esophagitis; I12.9 Hypertensive chronic kidney disease with stage 1 through stage 4 chronic kidney disease, or unspecified chronic kidney disease; N18.9 Chronic kidney disease, unspecified; E78.5 Hyperlipidemia, unspecified; M17.0 Bilateral primary osteoarthritis of knee; R73.03 Prediabetes; K57.90 Diverticulosis of intestine, part unspecified, without perforation or abscess without bleeding; Z96.653 Presence of artificial knee joint, bilateral; Z79.01 Long term (current) use of anticoagulants; I25.2 Old myocardial infarction; Z86.16 Personal history of COVID-19; Z98.42 Cataract extraction status, left eye; Z98.41 Cataract extraction status, right eye
CPT/HCPCS: 36415; 71046; 80048; 80053; 83690; 84484; 85025; 85027; 85610; 85730; 93005; 93306; 93458; 96374; 99285; A9270; C1760; C1887; C1894; C9803; G0269; G0378; J1644; J1650; J2250; J3010; J7030; J7040; U0003; U0005

== ENCOUNTER 2021-05-06 13:18 | Outpatient (CLI) | payer MEDICARE, SELFPAY ==
--- NOTE | ~2021-05-06 | MMUS_ITS ---
EXAMINATION: MM diagnostic dany LT w tab, US breast LT limited HISTORY: New mammographic asymmetry reported in left breast on 04/07/2021 MLO view TECHNIQUE: Additional 3-D tomosynthesis images of the left breast were performed and synthetic 2-D im ages were generated. CAD analysis was submitted and interpreted. High resolution upper outer and lowe r-outer left breast ultrasound was performed. COMPARISON: 04/03/2021, 03/28/2019, 03/13/2014 bilateral screening mammogram examinations FINDINGS: MAMMOGRAPHIC FINDINGS: No suspicious mass or architectural distortion, malignant calcification, skin thickening or retractio n is detected. ULTRASOUND: No suspicious mass or shadowing is detected. IMPRESSION: 1. No mammographic evidence of malignancy 2. Routine annual mammographic screening is recommended. BI-RADS Category 2: Benign finding(s). Reviewed, dictated and finalized at location A. N FURNISHINGS INSTALLER IMPRESSION: 1. No mammographic evidence of malignancy 2. Routine annual mammographic screening is recommended. BI-RADS Category 2: Benign finding(s).
== END 2021-05-06 13:19 | disposition home or self-care (01) ==
LOC: ANHIMG 13:18
PROVIDERS: PCP Internal Medicine; Visit Provider Internal Medicine
DX: R92.8 Other abnormal and inconclusive findings on diagnostic imaging of breast (principal)
CPT/HCPCS: 76642; 77061; 77065; G0279

== ENCOUNTER 2021-05-15 01:14 | Day surgery (SDC) | payer MEDICARE, SELFPAY ==
[2021-05-05 14:37] VITALS: BMI 29.1
--- NOTE | 2021-05-14 15:03 | WPDANESEPPF ---
Anes - Initial Pre Proc Eval Procedure: Operation Date: 05/15/21 08:45 Proposed Procedures p Screening Colonoscopy - Igor Maya MD Date/Time: 05/14/21 15:03 Surgeon: Igor Maya MD Pre Op Diagnosis: hx of colon polyps Patient Data Age: 76 Gender: F Height: 1.55 m Weight: 70 kg Allergies Allergy/AdvReac Type Severity Reaction Status Date / Time trimethoprim Allergy Intermediate Itching Verified 05/07/21 09:16 Sulfa (Sulfonamide Allergy Mild Itching Verified 05/07/21 09:16 Antibiotics) oxycodone AdvReac Severe Confusion Verified 05/07/21 09:16 Home Medications Medication Instructions Recorded Confirmed Type Eliquis 5 mg PO BID #60 tablet 01/27/19 05/07/21 Rx rosuvastatin 20 mg tablet 20 mg PO DAILY tablet 04/17/19 05/07/21 History mecobalamin (vitamin B12) 1,000 1,000 mcg PO DAILY #1 tablet 08/26/20 05/07/21 Rx mcg chewable tablet fiber 1 tablet PO BID 04/21/21 05/07/21 History folic acid 800 mcg PO HS 04/21/21 05/07/21 History metoprolol succinate [Toprol XL] 100 mg PO HS 04/21/21 05/07/21 History paroxetine HCl 10 mg PO DAILY 04/23/21 05/07/21 History omega-3 fatty acids 2,000 mg PO BID 05/05/21 05/07/21 History Patient hx anesthesia problems: none Family hx anesthesia problems: none Results Review: All pre-operative results and documents have been reviewed as part of the pre-operative evaluation. 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 Negative chemical stress test in 2019. On long term care pharmacist drug therapy SAI (obstructive sleep apnea) Osteoarthritis of left knee Osteoarthritis of right knee Paroxysmal atrial fibrillation Personal history of COVID-19 Pre-diabetes Primary osteoarthritis of both knees Rectal polyp Urinary leakage Surgical History Surgical History History of cataract extraction (08/28/19) Per Dr. Herrera. History of colonoscopy with polypectomy (~2014) Hyperplastic polyp. History of hemorrhoidectomy History of right knee joint replacement right knee Uni on December 30, 2020 History of shoulder surgery (~1992) Right shoulder reconstruction. History of tonsillectomy History of vertebroplasty (~2017) T9 vertebroplasty. S/P left unicompartmental knee replacement surgery October 2019 Family History Family History Father Acute myocardial infarction Mother Cancer Sibling Diabetes mellitus Sibling Hypertension Mother Family history of mental disorder Family history of pancreatic cancer Family history of colonic diverticulitis Other Cerebrovascular accident Social History Social History Social History: The patient lives in [place] with her of 64 years. She is her 's primary caregiver, he suffers from Parkinson's and dementia. I believe they have 4 children. 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 She is a lifelong nonsmoker. She does drink alcohol on occasion. Code status is full code. Primary care physician is Dr. Isabel Tomlinson. Smoking status: Never smoker Second hand tobacco smoke exposure: No Alcohol intake: never Substance use: never Gender identity (if verbalized by the patient): Female Spiritual care concerns: No Agree to blood products: Yes
[2021-05-15 07:32] VITALS: BP 128/98; PULSE 85; RESP 24; TEMP 36.1; O2SAT 97; BMI 29.0
[2021-05-15] MEDS: AMPICILLIN 2 GM/NS 100 ML 2 GM/100 ML BAG IVPB (07:49)
[2021-05-15] MEDS: LACTATED RINGERS 1,000 ML 150 ML IV CONT (07:51)
--- NOTE | 2021-05-15 07:59 | WPDGICN ---
Assessment and Plan Assessment and plan (1) Colon cancer screening: Code(s): Z12.11 - Encounter for screening for malignant neoplasm of colon Status: Acute Assessment and Plan: Patient has a history of colon polyps on previous exam. Plan is for surveillance colonoscopy at this time and consider this a 5 year intervals. GI Consult Note Consult date/time: 05/15/21 07:59 HPI: Cherry [place] is a 76 year old female Presents for screening colonoscopy. Patient has a history of colon polyps on several previous endoscopies. Most recent colonoscopy [address] Esteves. Patient reports her weight appetite are normal. She denies any blood in her stools. She occasional has rectal leakage. She attributes this to anal surgery for an anal fissure many years ago. Family history is significant that her parent had widely metastatic cancer of uncertain primary. No other family history of cancer is available. Review of Systems Review of Systems: All systems reviewed & are unremarkable except as noted in HPI and below PMFSH Past Medical History Medical History (Updated 05/14/21 @ 15:03 by Tr Guadarrama DO) Anxiety Atrial fibrillation Colon cancer screening Depression Distal radius fracture, right Diverticulosis Elevated homocysteine Encounter for annual wellness exam in Medicare patient Encounter to establish care FHx: type 2 diabetes mellitus Functional fecal incontinence Gastroesophageal reflux Hearing loss History of back injury History of shingles Hx of colonic polyps Hyperlipidemia Hypertension 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 Negative chemical stress test in 2019. On long-term drug therapy SAI (obstructive sleep apnea) Osteoarthritis of left knee Osteoarthritis of right knee Paroxysmal atrial fibrillation Personal history of COVID-19 Pre-diabetes Primary osteoarthritis of both knees Rectal polyp Urinary leakage Surgical History Surgical History History of cataract extraction (08/28/19) Per Dr. Herrera. History of colonoscopy with polypectomy (~2014) Hyperplastic polyp. History of hemorrhoidectomy History of right knee joint replacement right knee Uni on December 30, 2020 History of shoulder surgery (~1992) Right shoulder reconstruction. History of tonsillectomy History of vertebroplasty (~2017) T9 vertebroplasty. S/P left unicompartmental knee replacement surgery October 2019 Family History Family History Father Acute myocardial infarction Mother Cancer Sibling Diabetes mellitus Sibling Hypertension Mother Family history of mental disorder Family history of pancreatic cancer Family history of colonic diverticulitis Other Cerebrovascular accident Social History Social History Social History: The patient lives in [place] with her of 64 years. She is her 's primary caregiver, he suffers from Parkinson's and dementia. I believe they have 4 children. 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 She is a lifelong nonsmoker. She does drink alcohol on occasion. Code status is full code. Primary care physician is Dr. Isabel Tomlinson. Smoking status: Never smoker Second hand tobacco smoke exposure: No Alcohol intake: never Substance use: never Gender identity (if verbalized by the patient): Female Spiritual care concerns: No Agree to blood products: Yes Meds Home Medications and Allergies Home Medications Medication Instructions Recorded Confirmed Type Eliquis 5 mg PO BID #60 tablet 01/27/19 05/07/21 Rx rosuvastatin 20 mg tablet 20 mg PO DAILY tablet 04/17/19 05/07/21 History mecobalamin (vitamin B12) 1,000 1,000 mcg PO DAILY #1 tablet 08/26/20
[2021-05-15 09:30] VITALS: BP 98/58; PULSE 66; RESP 16; O2SAT 97
[2021-05-15 09:40] VITALS: BP 115/76; PULSE 60; RESP 16; O2SAT 98
[2021-05-15 09:50] VITALS: BP 131/80; PULSE 64; RESP 18; O2SAT 98
== END 2021-05-15 10:07 | disposition home or self-care (01) ==
PROVIDERS: PCP Internal Medicine; Visit Provider Internal Medicine Gastroenterology
PROC: 0DJD8ZZ Inspection of Lower Intestinal Tract, Via Natural or Artificial Opening Endoscopic (ICD-10-PCS; CPT 45378; principal; 2021-05-15 08:45)
DX: Z12.11 Encounter for screening for malignant neoplasm of colon (principal); K63.5 Polyp of colon; K64.8 Other hemorrhoids; K57.30 Diverticulosis of large intestine without perforation or abscess without bleeding; I48.91 Unspecified atrial fibrillation; F41.8 Other specified anxiety disorders; E11.9 Type 2 diabetes mellitus without complications; K21.9 Gastro-esophageal reflux disease without esophagitis; I10 Essential (primary) hypertension; E78.5 Hyperlipidemia, unspecified; K58.9 Irritable bowel syndrome, unspecified; I25.2 Old myocardial infarction; G47.33 Obstructive sleep apnea (adult) (pediatric); M19.90 Unspecified osteoarthritis, unspecified site; I48.0 Paroxysmal atrial fibrillation; Z86.16 Personal history of COVID-19; Z79.01 Long term (current) use of anticoagulants
CPT/HCPCS: 45385; 88305; J0290; J2704; J7120

== ENCOUNTER 2022-04-13 08:07 | Outpatient (CLI) | payer MEDICARE, SELFPAY ==
--- NOTE | 2022-04-28 18:30 | WPDHOMESLEEP ---
Sleep Study - Home Unattended Date of Study: 04/13/22 Ordering Provider: ALIE Perez Interpreting Provider: Promise Lombardi, DO Home Sleep Study Type: Watch PAT Height: 1.57 m Weight: 71.214 kg Body Mass Index: 28.7 Neck Circumference (inches): 15 [place]: 10 Reason for Sleep Study Snoring, paroxysmal atrial fibrillation Sleep History The patient is a 77 old female had a sleep study ordered by the pulmonary group for evaluation of sleep apnea. The patient had a SNAP HST done on 05/04/2019 that showed an overall AHI of 5.1. She was fitted for an oral appliance and has been wearing that recently. She had a repeat HSAT on 10/18/2021 that showed an AHI of 22.1. The patient was never set up with CPAP. the patient denies awakening from sleep short of breath. She rarely awakens at night with heartburn, belching or cough. She frequently snores loud enough that others complain. She rarely has trouble sleeping when she has a cold. She denies waking up gasping for air throughout the night. She denies having breathing problems at night observed by herself or others. She denies sweating excessively at night. She denies having heart palpitations or irregular heartbeats during the night. She occasionally falls asleep during the day but never while driving. She denies sleep paralysis and cataplexy. She rarely has trouble at school or work due to sleepiness. She rarely experiences vivid dreamlike scenes upon awakening or falling asleep. She denies feeling afraid of going to sleep. She rarely has nightmares. She occasionally remembers her dreams. She rarely has thoughts racing through her mind. She occasionally feels sad or depressed. She rarely has anxiety. She rarely has muscular tension. She rarely notices parts of her body jerk. She denies kicking during the night. She denies having crawling and aching feelings in her legs as well as leg pain during the night. She is rarely bothered by pain during the day but never awakened by pain during the night. She occasionally wakes up feeling stiff in the morning. She occasionally wakes up with sore or achy muscles. She occasionally wakes up with pain in the neck, spine or other joints. She goes to bed at 10:30 p.m. on weekdays and between 10 30-11 p.m. on the weekends. It takes her 5-10 minutes to fall asleep. She wakes up once throughout the night to urinate. She is able to fall back asleep within 10-15 minutes. She wakes up at 7:00 a.m. on both weekdays and weekends. She typically gets 8 hours of sleep per night. She will stay in bed for 10-15 minutes after waking up in the morning. She currently lives alone. She does not consume any caffeinated beverages within 2 hours of bedtime. She does not engage in physical exercise before bedtime. She will watch television before falling asleep. She will occasionally take naps in the afternoon or the evening and they are refreshing. She drinks 1 caffeinated beverage at most per day. She denies tobacco, alcohol and recreational drug use. [facility] Past Medical History Medical History Anxiety Anxiety with depression Atrial fibrillation Bilateral ankle pain BMI 30.0-30.9,adult Chronic kidney disease (CKD), stage II (mild) Colon cancer screening Depression Distal radius fracture, right Diverticulosis Elevated homocysteine Encounter for annual wellness exam in Medicare patient Encounter for routine adult health examination without abnormal findings Encounter to establish care FHx: type 2 diabetes mellitus Functional fecal incontinence Gastroesophageal reflux Hearing loss Heel pain, bilateral History of back injury History of shingles Hx of colonic polyps Hyperlipidemia Hypersomnia Irritable bowel syndrome long-term current use of anticoagulant Mild mitral regurgitation Myocardial infarct Abnormal EKG a outpatient office. Negative chemical stress test in 2019. Nasal amos
[2022-04-28 18:35] VITALS: BMI 28.7
== END 2022-04-14 10:05 | disposition home or self-care (01) ==
LOC: ANHCSM 08:09
PROVIDERS: PCP Internal Medicine; Visit Provider Physician Assistant
DX: G47.33 Obstructive sleep apnea (adult) (pediatric) (principal); G47.10 Hypersomnia, unspecified; R06.83 Snoring
CPT/HCPCS: 95800

== ENCOUNTER 2024-01-27 14:30 | Outpatient (CLI) | payer MEDICARE, OTHER, SELFPAY ==
--- NOTE | ~2024-01-27 | XR_ITS ---
Right foot Technique: AP, oblique, and lateral views were obtained. Clinical History: Fourth toe burning Findings: No acute fracture or dislocation is seen. There is severe degenerative change of the first MTP joint. There is mild to moderate degenerative change of the fourth DIP joint.. Soft tissues are u nremarkable. Impression: [id number] degenerative change of fourth DIP joint. 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 Reviewed, dictated and finalized at location M. FRAME OPERATOR Impression: [id number] degenerative change of fourth DIP joint. 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
== END 2024-01-27 14:31 | disposition home or self-care (01) ==
PROVIDERS: PCP Internal Medicine; Visit Provider Internal Medicine
DX: M19.071 Primary osteoarthritis, right ankle and foot (principal)
CPT/HCPCS: 73630

== ENCOUNTER 2024-09-20 13:51 | Outpatient (CLI) | payer MEDICARE, OTHER, SELFPAY ==
--- NOTE | ~2024-09-20 | XR_ITS ---
EXAMINATION: XR UGIAC wo kub DATE: 09/20/2024 14:43 INDICATION: Nausea TECHNIQUE: The patient drank thick barium, gas-producing crystals, and thin barium. A total of 756 fl uoroscopic images of the esophagus, stomach, and proximal small bowel were obtained. Fluoroscopy expo sure time was 2.5 minutes. Total DAP was 13.235 Gycm^2. COMPARISON: 10/16/2013 FINDINGS: There is a prominent cricopharyngeus muscle at the superior esophageal sphincter. The esophagus is no rmal without mass or stricture. Esophageal motility is normal. Small sliding-type hiatal hernia with esophageal B ring at the gastroesophageal junction patient 4 cm above the level of the diaphragm. The re was no gastroesophageal reflux with provocative maneuvers. The stomach and proximal small bowel ar e normal. Incidentally noted is a lower thoracic compression fracture with prior vertebroplasty. IMPRESSION: 1. Small sliding-type hiatal hernia without gastroesophageal reflux with provocative maneuvers. Reviewed, dictated and finalized at location A. IMPRESSION: 1. Small sliding-type hiatal hernia without gastroesophageal reflux with provoc ative maneuvers.
--- OUTSIDE RECORDS SUMMARY | 2024-09-20 14:04 | XMS_ITS | Referral Summary ---
Author Organization [facility] Medical Office Building [address] Address [address] [place] [address] Care Team Providers Care Liquor Maker Name Role Phone Isaac [place] MD Primary Care Provider [phone] Allergies Active Allergy Reactions Criticality Noted Date Comments Sulfa (Sulfonamide Antibiotics) Rash Medium 12/15 Sulfamethoxazole Other (See comments) Low 8 Trimethoprim Other (See comments) Low 10/29/2017 Medications folic acid (FOLVITE) 1 mg tablet Take 1 tablet (1 mg total) by mouth daily Active ywzqu-5-xol-epa -dpa-fish oil 1,050-1,200 mg capsule 1 capsule Active cyanocobalamin (Vitamin B-12) 1,000 mcg tabletIndicatio ns:Prevention of Vitamin B12 Deficiency Take 1 tablet (1,000 mcg total) by mouth daily Active guar gum (CHEWABLE FIBER ORAL) Take by mouth Active rosuvastatin (CRESTOR) 10 mg tablet Take 1 tablet (10 mg total) by mouth daily Active apixaban (Eliquis) 5 mg tablet TAKE 1 TABLET BY MOUTH TWICE A DAY 180 tablet 3 12/27/2023 Active metoprolol XL (TOPROL-XL) 100 mg 24 hr tablet TAKE 1 TABLET BY MOUTH EVERY DAY 90 tablet 3 12/27/2023 Active solifenacin (VESIcare) 5 mg tablet Take 1 tablet (5 mg total) by mouth daily 05/15/2024 Active Hospital, Clinic, or Other Facility Administered Medication Ordered Dose Route Frequency Start Date End Date Status NON FORMULARY (FOR CLINIC ADMINISTERED MEDICATIONS ONLY) (not in database) 1 eachIndications:SAI (obstructive sleep apnea) 1 each oral Daily 05/29/2019 Active Active Problems Problem Noted Date Diagnosed Date Mixed hyperlipidemia 03/05/2022 Coronary artery disease invo lving [place] coronary artery of [place] heart without angina pectoris 08/28/2021 Nonrheumatic aortic valve stenosis 10/18/2020 Pulmonary HTN 10/18/2020 DHILLON (dyspnea on exertion) 07/02/2020 History of 2019 novel coronavirus disease (COVID -19) 07/02/2020 SAI (obstructive sleep apnea) 02/17/2019 Elevated troponin I level 02/17/2019 HTN (hypertension), benign 02/17/2019 Atrial fibrillation 02/17/2019 Chest pain 02/17/2019 Chronic anticoagulation 02/17/2019 Primary osteoarthritis of right knee 12/13/2017 Bilateral primary osteoarthritis of knee 017 Resolved Problems Problem Noted Date Diagnosed Date Resolved Date Dyslipidemia 02/17/2019 03/05/2022 Social History Tobacco Use Types Packs/Day Years Used Date Smoking Tobacco: Never Smokeless Tobacco: Never Alcohol Use Standard Drinks/Week Comments No 0 (1 standard drink = 0.6 oz pur e alcohol) Comments Unknown Sex and Gender Information Value Date Recorded Sex Assigned at Not on file 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 Gender Identity Not on file Sexual Orientation Not on file Last Filed Vital Signs Vital Sign Reading Time Taken Comments Blood Pressure 112/80 05/22/2024 1:31 PM CDT Pulse 80 05/22/2024 1:31 PM CDT Temperature 37.1 C (98.8 F) 09/01/2017 12:25 PM CDT Respiratory Rate 18 12/26/2019 10:08 AM CDT Oxygen Saturation 95% 05/22/2024 1:31 PM CDT Inhaled Oxygen Concentration - - Weight 70.8 kg (156 lb) 05/22/2024 1:31 PM CDT Height 157.5 cm (5' 2) 05/22/2024 1:31 PM CDT Body Mass Index 28.53 05/22/2024 1:31 PM CDT Plan of Treatment Not on file Medical Devices Implanted Type Area Director Semiconductor Device Identifier Shelf Expiration Date Model / Serial / Lot [employer] 2002 Stabilit First Kit Fracture - [id number] Implanted:Qty: 1 on 09/01/2017 at [facility] [employer] 05/13/2019 2003 / / [id number] [facility] Member Subscriber Plan / Payer (Ef fective 2022-Present) Name:Cherry Coleman Relation to Subscriber:Self Name:Cherry Coleman Payer ID:[id number] Group ID:Not on file Type:Results Scorecard Address: [address] [place] [id number] Advance Directives For more information, please contact: [phone] * Full Code (Latest Code Status on File) Date Activated Date Inactivated Comments 09/01/2017 3:09 PM 09/01/2017 6:55 PM Care Teams Liquor Maker Relationship Specialty Start Date End Date Isaac [place] MD [address] [facility] [address] [place] [address] PCP - General Internal Medicine 10/18/20
--- OUTSIDE RECORDS SUMMARY | 2024-09-20 14:04 | XMS_ITS | Clinical Summary ---
Author Organization [facility] Medical Office Building [address] Address [address] [place] [address] Care Team Providers Care Aircraft Landing Gear Inspector Name Role Phone Isaac [place] MD Primary Care Provider [phone] Allergies Active Allergy Reactions Criticality Noted Date Comments Sulfa (Sulfonamide Antibiotics) Rash Medium 12/15 Sulfamethoxazole Other (See comments) Low 8 Trimethoprim Other (See comments) Low 10/29/2017 Medications folic acid (FOLVITE) 1 mg tablet Take 1 tablet (1 mg total) by mouth daily Active nipjh-5-hfd-epa -dpa-fish oil 1,050-1,200 mg capsule 1 capsule [...] hyperlipidemia 03/05/2022 Coronary artery disease invo lving [place] coronary artery of [place] heart without angina pectoris 08/28/2021 Nonrheumatic aortic [...] Diagnosed Date Resolved Date Dyslipidemia 02/17/2019 03/05/2022 Surgical History Surgery Date Site/Laterality Comments SHOULDER SURGERY HEMORROIDECTOMY SHOULDER SURGERY Shoulder Surgery - (Added by TW Conv) KYPHOPLASTY THORACIC 09/01/2017 N/A KNEE SURGERY CARDIAC CATHETERIZATION 04/23/2021 CATARACT EXTRACTION Right and Left COLON SURGERY Hemorrhoid FRACTURE SURGERY Vertebra JOINT REPLACEMENT reconstructive right shoulder surgery 1991, left partial knee 2019 - right partial knee 2020 Medical History Medical History Date Comments Hypertension Personal history of other di seases of the circulatory system History of hypertension - (A dded by TW Conv) Hyperlipidemia Diverticulitis Cataract Anxiety Depression Sleep apnea Covid Shortness of breath Chest pain Heart disease A-fib Family History Medical History Relation Name Comments Heart attack Brother Germán Hypertension Brother Germán Pneumonia Father Cancer Mother Lana Hypertension Mother Lana Cancer Other 1 Hypertension Other 1 Hypertension Other 2 Family history of hypertension - (Added by TW Conv) Cancer Other 3 Family history of malignant neoplasm - (Added by TW Conv) Relation Name Status Comments Brother Germán (Age 67) Father (Age 87) Mother Lana (Age 81) Other 1 Other 2 Other 3 Social History Tobacco Use Types Packs/Day Years Used Date Smoking Tobacco: Never Smokeless Tobacco: Never Alcohol Use Standard Drinks/Week Comments No 0 (1 standard drink = 0.6 oz pur e alcohol) Comments Unknown Sex and Gender Information Value Date Recorded Sex Assigned at Not on file 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 Gender Identity Not on file Sexual Orientation Not on file Obstetrics History Last Filed Vital Signs Vital Sign Reading [...] 05/22/2024 1:31 PM CDT Plan of Treatment Health Maintenance Due Date Last Done Comments Depression Screening 1943 Fall Risk Assessment 1945 Osteoporosis Screening-Bone Density Scan 1943 Hepatitis B Screening 1961 Zoster Vaccine (1 of 2) 1993 Well Visit 65+ 2008 DTaP/Tdap/Td Vaccine (1 - Tdap) 02/24/2012 2, 04/11/2002 Influenza Vaccine (#1) 2024 9, 12/10/2018, 01/13/2017, Additional history exists Pneumococcal vaccine 65+ Completed 016, 12/26/2014, 01/20/2011 Medical Devices Implanted Type Area Supervisor Customer Services Device Identifier Shelf Expiration Date Model / Serial / Lot [employer] 2002 Stabilit First Kit Fracture - [id number] Implanted:Qty: 1 on 09/01/2017 at [facility] [employer] 05/13/20192002 / / [id number] [facility] Advance Directives For more information, please contact: [phone] * Full Code (Latest Code Status on File) Date Activated Date Inactivated Comments 09/01/2017 3:09 PM 09/01/2017 6:55 PM Care Teams Aircraft Landing Gear Inspector Relationship Specialty Start Date End Date Isaac [place] MD [address] [facility] [address] [facility] [address] [place] [address] PCP - General Internal Medicine 10/18/20
== END 2024-09-20 13:52 | disposition home or self-care (01) ==
PROVIDERS: PCP Internal Medicine; Visit Provider Internal Medicine
DX: R11.0 Nausea (principal); K44.9 Diaphragmatic hernia without obstruction or gangrene
CPT/HCPCS: 74246